=== PATIENT | male | born 1940 | race Caucasian/White ===

== ENCOUNTER 2017-01-22 08:45 | Inpatient (IN) | payer OTHER ==
[~2017-01-22] VITALS: Ht 172.7 cm; Wt 55.5 kg
[2017-01-22] MEDS ORDERED: ONDANSETRON 4 MG INJ IV STA (09:17)
[2017-01-22] MEDS ORDERED: SOD CHLORIDE 0.9% 1,000 ML IV STA ×3 (09:17→13:09)
[2017-01-22] MEDS ORDERED: morphine 4 MG/ML VIAL IV STA (09:17)
[2017-01-22] MEDS ORDERED: KETOROLAC 30 MG INJ IV STA ×2 (09:17→10:32)
--- NOTE | 2017-01-22 10:07 | RADRPT ---
PROCEDURE: CT ABDOMEN AND PELVIS WITHOUT CONTRAST. CLINICAL INDICATION: Lower right flank pain TECHNIQUE: CT scan of the abdomen and pelvis without contrast was performed on a multidetector hig h-resolution CT scanner. The patient was scanned without intravenous contrast. Coronal and sagittal reformatted images were obtained from the axial source images. Images were reviewed on a high-resol [employer] PACS workstation. The total exam CTDI equals 5.2 mGy and the total exam DLP equals 300.8 mGy-c m. One or more of the following dose reduction techniques were used: Automated exposure control. Adjustment of the mA and/or kV according to patient size. Use of iterative reconstruction technique. COMPARISON: None FINDINGS: CT abdomen: The lung bases are clear. The heart size is within limits. There is no significant pericardial effus ion. Hepatic morphology is within normal limits. No gross contour deforming masses. The gallbladder is wi thin normal limits. No evidence of intrahepatic or extrahepatic biliary dilatation. The spleen and pancreas are within normal limits. Both adrenal glands are within normal limits. Both kidneys are and normal anatomic position. The right kidney is enlarged and there is right-sided hydronephrosis, secondary to a 5 mm stone within the right mid ureter. Right perinephric fat strand ing is noted. Several additional nonobstructing stones are noted within the right kidney. Multiple n onobstructing stones are also identified within the left kidney, without evidence of obstruction hyd ronephrosis. The visualized GI tract demonstrates normal caliber loops of small and large bowel. No evidence of b owel obstruction. The appendix is within normal limits. Stool filled loops of large bowel are noted. There is colonic diverticulosis. Atherosclerotic calcification of the aorta is identified. There is aneurysmal dilatation of the infr arenal aorta measuring up to 3.2 cm. No significant retroperitoneal lymphadenopathy. CT pelvis: Bladder is within limits. The prostate gland is enlarged measuring up to 5.17 cm. There is extensive sigmoid diverticulosis. No evidence of free fluid and no evidence of pelvic lymphadenopathy. The visualized osseous structures demonstrate multilevel degenerative disease of the spine. IMPRESSION: 1. ENLARGED RIGHT KIDNEY WITH RIGHT PERINEPHRIC FAT STRANDING AND RIGHT-SIDED HYDRONEPHROSIS SECONDA RY TO A 5 MM STONE WITHIN THE RIGHT MID URETER. 2. Multiple additional nonobstructing stones are identified within both kidneys. No evidence of hydr onephrosis within the left kidney. 3. Colonic diverticulosis. No evidence of bowel obstruction. Stool filled large bowel suggestive of constipation. The appendix is within normal limits. 4. Atherosclerotic disease of the aorta. 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 5. Prostamegaly. RPTAT: AAPP Fransisco Seymour Physician Date Time Electronically viewed and signed by Fransisco Seymour Physician on 01/22/2017 10:07 JL/
[2017-01-22] MEDS ORDERED: ALBU8.5H3 INH (10:47)
[2017-01-22] MEDS ORDERED: CIPROFLOXACIN 400MG/D5W 200 ML IVPB ONE (11:00)
[2017-01-22] MEDS ORDERED: KETOROLAC 15 MG INJ IV SCH (11:00)
[2017-01-22] MEDS ORDERED: TAMSULOSIN (SR) 0.4 MG CAP PO SCH (11:30)
--- NOTE | 2017-01-22 14:10 | ERD ---
ER Documentation Chief Complaint Chief Complaint RT FLANK PAIN RADIATING TO RT LOWER ABDOMEN HPI This is a very pleasant 76-year-old male that presents to the emergency department complaining of a sudden onset of right flank pain that began this morning roughly 3 hours prior to arrival. The pain is persistent, 10 out of 10 in intensity and does radiate to the right lower quadrant and right ring. He denies any frequency urgency or dysuria no gross hematuria. He is felt nauseous but has not experienced any hemoptysis hematemesis or melanotic stools. He has never had any similar symptoms in the past. He has no chest pain or pressure that radiates to the neck arm back or jaw. Patient said he had a tactile fever with shaking and chills yesterday evening but did not take any antipyretics prior to arrival. ROS All systems reviewed and are negative except as per history of present illness. Medications Home Meds Reported Medications Albuterol Sulfate* (Proair HFA*) 8.5 Gm Hfa.aer.ad, 2 PUFF INH Q4H Y for WHEEZING AND SOB, #1 INHALER 01/22/17 Allergies Allergies: Coded Allergies: No Known Allergy (Unverified , 01/22/17) PMhx/Soc History of Surgery: Yes (hernia repair) Anesthesia Reaction: No Hx 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 Disorder: No Hx Respiratory Disorders: Yes (asthma) Hx Cardiac Disorders: No Hx Psychiatric Problems: No Hx Miscellaneous Medical Probl: No Hx Alcohol Use: No Hx Substance Use: No Hx Tobacco Use: Yes Smoking Status: Current every day smoker Physical Exam Vitals Vital Signs Date Time Temp Pulse Resp B/P Pulse Ox O2 Delivery O2 Flow Rate FiO2 01/22/17 11:45 72 18 117/73 98 Room Air 01/22/17 08:48 97.6 73 18 139/66 98 Physical Exam Constitutional:Well-developed. Well-nourished. Appeared to be in a significant amount discomfort secondary to pain HEENT:Normocephalic. Atraumatic.Pupils were equal round reactive to light. Moist mucous membranes.No tonsillar exudates. Neck: No nuchal rigidity. No lymphadenopathy. No posterior cervical spine tenderness or step-offs. Respiratory: Not using accessory muscles of respiration.Lungs were clear to auscultation bilaterally. No rhonchi. No rales. No wheezing. Cardiovascular: Regular rate regular rhythm.No murmurs. No rubs were appreciated.S1, S2 normal. Distal pulses are palpable 2+ bilaterally. GI: Abdomen was soft. Right CVA tenderness. Non Distended. No pulsatile abdominal masses or bruits. No rebound. No guarding. Bowel sounds were present and normal. No tenderness over McBurney's point. Psoas sign negative. Obturator sign negative : Normal lie to both testicles. No tenderness to right testicle. Muscle skeletal: Full range of motion of both the upper and lower extremities bilaterally.Normal muscle tone.No assymetrical calf tenderness or swelling. Skin: No petechia, no purpura. No lesions on the palms or the soles of the feet. No maculopapular rash. NEURO: Patient was alert, awake, orientated x3.No facial droop. Gait observed and normal with no ataxia.Speech had regular rate and rhythm. No focal neurological deficits. Result Diagram: 01/22/1792401/22/1725 Results 24 hrs Laboratory Tests Test 01/22/17 09:25 01/22/17 09:30 01/22/17 13:20 White Blood Count 7.810^3/ul Red Blood Count 4.7410^6/ul Hemoglobin 14.3g/dl Hematocrit 44.2% Mean Corpuscular Volume 93.2fl Mean Corpuscular Hemoglobin 30.2pg Mean Corpuscular Hemoglobin Concent 32.4g/dl Red Cell Distribution Width 12.8% Platelet Count 81776^3/UL Mean Platelet Volume 12.0fl Neutrophils % 76.4% Lymphocytes % 13.3% Monocytes % 8.4% Eosinophils % 1.3% Basophils % 0.1% Nucleated Red Blood Cells % 0.0/100WBC Neutrophils # 6.010^3/ul Lymphocytes # 1.010^3/ul Monocytes # 0.710^3/ul Eosinophils # 0.110^3/ul Basophils # 0.010^3/ul Nucleated Red Blood Cells # 0.010^3/ul Sodium Level 144mmol/L Potassium Level 4.2mmol/L Chloride Level 106mmol/L Carbon Dioxide Level 27mmol/L Anion Gap 15 Blood Urea Nitrogen 12mg/dl Creatinine 0.92mg/dl Glucose Level 108mg/dl Calcium Level 9.4mg/dl Total Bilirubin 0.4mg/dl Direct Bilirubin 0.00mg/dl Indirect Bilirubin 0.4mg/dl Aspartate Amino Transf (AST/SGOT) 16IU/L Alanine Aminotransferase (ALT/SGPT) 19IU/L Alkaline Phosphatase 113IU/L Troponin I < 0.012ng/ml Total Protein 7.3g/dl Albumin 4.4g/dl Globulin 2.90g/dl Albumin/Globulin Ratio 1.51 Prothrombin Time 12.5Sec Prothrombin Time Ratio 1.0 INR International Normalized Ratio 0.93 Activated Partial Thromboplast Time 28.0Sec Urine Color YELLOW Urine Clarity CLEAR Urine pH 6.0 Urine Specific [place] 1.010 Urine Ketones NEGATIVEmg/dL Urine Nitrite NEGATIVEmg/dL Urine Bilirubin NEGATIVEmg/dL Urine Urobilinogen NEGATIVEmg/dL Urine Leukocyte Esterase NEGATIVELeu/ul Urine Microscopic RBC 36/HPF Urine Microscopic WBC 1/HPF Urine Hemoglobin 2+mg/dL Urine Glucose NEGATIVEmg/dL Urine Total Protein NEGATIVEmg/dl Current Medications Medications (Trade) Dose Ordered Sig/[place] PRN Reason Start Time Stop Time Status Last Admin Dose Admin Sodium Chloride (NS) 1,000 ml @ 1,000 mls/hr Q1H STAT IV 01/22/17 09:17 01/22/17 10:16 DC 01/22/17 09:46 Morphine Sulfate (morphine) 4 mg ONCE STAT IV 01/22/17 09:17 01/22/17 09:20 DC 01/22/17 09:46 Ondansetron HCl (Zofran Inj) 4 mg ONCE STAT IV 01/22/17 09:17 01/22/17 09:20 DC 01/22/17 09:46 Ketorolac Tromethamine 30 mg 30 mg ONCE STAT IV 01/22/17 09:17 01/22/17 09:20 DC 01/22/17 09:46 Sodium Chloride (NS) 1,000 ml @ 1,000 mls/hr Q1H STAT IV 01/22/17 10:32 01/22/17 11:31 DC 01/22/17 10:47 Ketorolac Tromethamine 30 mg 30 mg ONCE STAT IV 01/22/17 10:32 01/22/17 10:33 UNV Ciprofloxacin/ Dextrose (Cipro Ivpb) 200 ml @ 200 mls/hr ONCE ONCE IVPB 01/22/17 11:00 01/22/17 11:59 DC 01/22/17 11:01 Tamsulosin HCl (Flomax) 0.4 mg ONCE PO 01/22/17 11:30 01/22/17 13:00 DC 01/22/17 11:01 Ketorolac Tromethamine 15 mg 15 mg ONCE IV 01/22/17 11:00 01/22/17 12:00 DC Sodium Chloride (NS) 1,000 ml @ 1,000 mls/hr Q1H STAT IV 01/22/17 13:09 01/22/17 14:08 DC Procedures/MDM This patient presented to the emergency department with abdominal pain and was seen and evaluated by myself. My differential diagnosis included but was not limited to abdominal aortic aneurysm, appendicitis, pancreatitis, perforated peptic ulcer, perforated viscus, Boerhaaves syndrome or visceral pain such as diverticulitis, DKA, esophagitis, hepatitis or bowel obstruction. The patient was placed on a process development associate, continuous pulse oximetry, and IV access was established by nursing staff. Patient was given intravenous morphine Zofran Toradol and Flomax as a CT scan and physical exam findings did confirm right-sided nephrolithiasis. CT scan read by the radiologist and reviewed by myself indicated the followin. ENLARGED RIGHT KIDNEY WITH RIGHT PERINEPHRIC FAT STRANDING AND RIGHT-SIDED HYDRONEPHROSIS SECONDARY TO A 5 MM STONE WITHIN THE RIGHT MID URETER. 2. Multiple additional nonobstructing stones are identified within both kidneys. No evidence of hydronephrosis within the left kidney. 3. Colonic diverticulosis. No evidence of bowel obstruction. Stool filled large bowel suggestive of constipation. The appendix is within normal limits. 4. Atherosclerotic disease of the aorta. 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 5. Prostamegaly. 12 Lead EKG tracing ordered and reviewed by myself showed: Sinus bradycardia 58 bpm and no arrhythmia. [place] interval normal. QRS duration normal. No ST segment elevation No ST segment depression. No changes consistent with acute ischemia. Observation Note: Time: 4 hours Family Hx: No Hypertension Evaluation: Multiple exams showed no improvement of symptoms that he was in severe pain. Therefore did feel the patient required admission for IV analgesic medication and fluids. He will be seen by the urologist Dr. Salazar and there is no signs of renal failure or obstructive uropathy at this time as the patient was able to urinate without any difficulty and no evidence of an infectious process however given the severity of his symptoms he was given a dose of IV ciprofloxacin to prevent secondary bacterial infection. Will be admitted to Dr. Quintanilla in serious condition Departure Diagnosis: Primary Impression: Hydronephrosis Hydronephrosis type: with renal calculous obstruction Qualified Code: N13.2 - Hydronephrosis with urinary obstruction due to renal calculus Additional Impression: Kidney stone on right side Condition: Serious NIKKO LINCOLN Jan 22, 2017 14:10
[2017-01-22] MEDS ORDERED: HYDROCODONE/APAP (5/325) TAB PO PRN ×2 (15:00)
[2017-01-22] MEDS ORDERED: morphine 2 MG INJ IV PRN (15:00)
[2017-01-22] MEDS ORDERED: ACETAMINOPHEN 325 MG TAB PO PRN (15:00)
[2017-01-22] MEDS ORDERED: ALBUTEROL HFA 8 GM INHALER INH PRN (15:00)
[2017-01-22] MEDS ORDERED: DOCUSATE SODIUM 100 MG CAP PO PRN (15:00)
[2017-01-22] MEDS ORDERED: NACL 0.9% 3 ML SYG IV SCH (15:00)
[2017-01-22] MEDS ORDERED: ONDANSETRON 4 MG INJ IV PRN (15:00)
[2017-01-22] MEDS ORDERED: BISACODYL 10 MG SUPP PR PRN (15:00)
[2017-01-22] MEDS: SOD CHLORIDE 0.9% 1,000 ML IV SCH (15:13)
--- NOTE | 2017-01-22 15:24 | HP ---
Date/Time of Note Date/Time of Note DATE: 01/22/17 TIME: 15:14 Assessment/Plan VTE Prophylaxis VTE Prophylaxis Intervention: SCD's Lines/Catheters IV Catheter Type (from [facility]): Peripheral IV Urinary Cath still in place: No Assessment/Plan Assessment/Plan 76-year-old male with: 1. Right flank pain with nephrolithiasis with right hydronephrosis secondary to a 5 mm stone in the mid right ureter. Possible pyelonephritis also, appreciate recommendations from neurology, patient on IV fluids, Flomax, ciprofloxacin. KUB has been ordered, follow-up on results. Strain urine. Dr. Salazar following 2. Asthma/COPD. Continue nebulizer treatments scheduled every 8 hours and patient also has as needed Ventolin. Prophylaxis: Pepcid for GI prophylaxis, SCDs for DVT prophylaxis and patient also ambulatory Disposition: Admit to medical surgical bed, urology following. HPI/ROS Admit Date/Time Admit Date/Time Hx of Present Illness Chief complaint: Right flank pain History of presenting illness: This is a 76-year-old male with history of asthma /COPD, tobacco user who presented the emergency department with acute onset of right flank pain this morning. Patient's reports that he has no previous history of nephrolithiasis, he had acute onset of right flank pain this morning radiating down his right inguinal area towards his penis, he reports nausea, no vomiting, no fevers, occasional episodes of chills with the pain. In the emergency department he had a CAT scan of the abdomen and pelvis which showed right hydronephrosis secondary to a 5 mm stone within the right mid ureter. Patient has been given Flomax, started on IV fluids. Renal function is within normal, white blood cell count within normal, he did receive a dose of ciprofloxacin IV. No hematuria or dysuria reported. Urology, Dr. Salazar, has been consulted and has seen the patient, his current recommendation is to obtain a KUB, conservative management, IV fluids, Flomax, observe the patient and strain his urine, if he does not pass the stone in the next 48 hours, he may need surgical intervention. Patient denies any hypertension, diabetes mellitus, previous kidney disease, previous coronary artery disease or severe pulmonary disease. He is being admitted to a medical surgical bed, currently his pain is under control. ROS Constitutional: chills ENT: no complaints Respiratory: no complaints Cardiovascular: no complaints Gastrointestinal: no complaints Genitourinary: flank pain (Right) Musculoskeletal: no complaints Skin: no complaints Neurologic: no complaints Endocrine: no complaints Lymphatic: no complaints PMH/Family/Social Past Medical History Asthma/COPD Tobacco user Past Surgical History Past Surgical Hx: no surgical history Family History Significant Family History: no pertinent family hx Social History Alcohol Use: occasionally Smoking Status: Current every day smoker (5 cigarettes a day) Drug Use: none Exam/Review of Systems Vital Signs Vitals Vital Signs Date Time Temp Pulse Resp B/P Pulse Ox O2 Delivery O2 Flow Rate FiO2 01/22/17 14:26 69 17 116/69 98 Room Air 01/22/17 08:48 97.6 Exam Constitutional: alert, oriented, well developed Respiratory: clear to auscultation, normal air movement Cardiovascular: nl pulses, regular rate and rhythm Gastrointestinal: soft, tender (Mild right flank) Genitourinary - Male: CVA tenderness (Right, mild) Musculoskeletal: nl extremities to inspection, nl gait and stance Extremities: normal pulses, other (No edema, clubbing or cyanosis) 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: APPLICATIONS SUPPORT ANALYST II-XII intact, nl mental status, nl speech, nl strength Labs Result Diagram: 01/22/1792401/22/17924 Medications Medications Current Medications Tamsulosin HCl 0.4 mg 0.4 mg DAILY PO ; Start 01/23/17 at 09:00 Ciprofloxacin/ Dextrose 200 ml @ 200 mls/hr Q12 IVPB ; Start 01/22/17 at 21:00 Sodium Chloride (NS) 1,000 ml @ 100 mls/hr Q10H IV Last administered on t 15:13; Admin Dose 100 MLS/HR; Start 01/22/17 at 14:38 Ondansetron HCl (Zofran Inj) 4 mg Q6H PRN IV NAUSEA AND/OR VOMITING; Start 01/22/17 at 15:00 Acetaminophen (Tylenol Tab) 650 mg Q6H PRN PO PAIN LEVEL 1-3 OR FEVER; Start 01/22/17 at 15:00 Acetaminophen/ Hydrocodone Bitart ([place] (5/325)) 1 tab Q6H PRN PO MODERATE PAIN LEVEL 4-6; Start 01/22/17 at 15:00 Acetaminophen/ Hydrocodone Bitart ([place] (5/325)) 2 tab Q6H PRN PO SEVERE PAIN LEVEL 7-10; Start 01/22/17 at 15:00 Morphine Sulfate (morphine) 2 mg Q4H PRN IV SEVERE PAIN LEVEL 7-10; Start 01/22 at 15:00 Docusate Sodium (Colace) 100 mg Q12H PRN PO CONSTIPATION; Start 01/22/17 at 15: 00 Magnesium Hydroxide (Milk Of Mag) 30 ml DAILY PRN PO CONSTIPATION; Start at 15:00 Bisacodyl (Dulcolax Supp) 10 mg DAILY PRN [place] CONSTIPATION; Start 01/22/17 at 15 :00 Famotidine (Pepcid) 20 mg Q12 PO ; Start 01/22/17 at 21:00 Albuterol (Ventolin Hfa) 2 puff Q4H PRN INH WHEEZING AND SOB; Start 01/22/17 at 15:00 Procedures Procedures PROCEDURE: CT ABDOMEN AND PELVIS WITHOUT CONTRAST. CLINICAL INDICATION: Lower right flank pain TECHNIQUE: CT scan of the abdomen and pelvis without contrast was performed on a multidetector high-resolution CT scanner. The patient was scanned without intravenous contrast. Coronal and sagittal reformatted images were obtained from the axial source images. Images were reviewed on a high-resolution PACS workstation. The total exam CTDI equals 5.2 mGy and the total exam DLP equals 300.8 mGy-cm. One or more of the following dose reduction techniques were used: Automated exposure control. Adjustment of the mA and/or kV according to patient size. Use of iterative reconstruction technique. COMPARISON: None FINDINGS: CT abdomen: The lung bases are clear. The heart size is within limits. There is no significant pericardial effusion. Hepatic morphology is within normal limits. No gross contour deforming masses. The gallbladder is within normal limits. No evidence of intrahepatic or extrahepatic biliary dilatation. The spleen and pancreas are within normal limits. Both adrenal glands are within normal limits. Both kidneys are and normal anatomic position. The right kidney is enlarged and there is right-sided hydronephrosis, secondary to a 5 mm stone within the right mid ureter. Right perinephric fat stranding is noted. Several additional nonobstructing stones are noted within the right kidney. Multiple nonobstructing stones are also identified within the left kidney, without evidence of obstruction hydronephrosis. The visualized GI tract demonstrates normal caliber loops of small and large bowel. No evidence of bowel obstruction. The appendix is within normal limits. Stool filled loops of large bowel are noted. There is colonic diverticulosis. Atherosclerotic calcification of the aorta is identified. There is aneurysmal dilatation of the infrarenal aorta measuring up to 3.2 cm. No significant retroperitoneal lymphadenopathy. CT pelvis: Bladder is within limits. The prostate gland is enlarged measuring up to 5.17 cm. There is extensive sigmoid diverticulosis. No evidence of free fluid and no evidence of pelvic lymphadenopathy. The visualized osseous structures demonstrate multilevel degenerative disease of the spine. IMPRESSION: 1. ENLARGED RIGHT KIDNEY WITH RIGHT PERINEPHRIC FAT STRANDING AND RIGHT-SIDED HYDRONEPHROSIS SECONDARY TO A 5 MM STONE WITHIN THE RIGHT MID URETER. 2. Multiple additional nonobstructing stones are identified within both kidneys. No evidence of hydronephrosis within the left kidney. 3. Colonic diverticulosis. No evidence of bowel obstruction. Stool filled large bowel suggestive of constipation. The appendix is within normal limits. 4. Atherosclerotic disease of the aorta. 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 5. Prostamegaly. RPTAT: AAPP Physician Yin Date Time Electronically viewed and signed by Physician Yin on 01/22/2017 10:07 TIARRA/ MANJU ZELAYA Jan 22, 2017 15:24
[2017-01-22 15:26] VITALS: Ht 172.7 cm; Wt 55.5 kg
--- NOTE | 2017-01-22 15:38 | RADRPT ---
PROCEDURE: XR Abdomen 1 View. CLINICAL INDICATION: Abdominal pain. Kidney stone follow-up. TECHNIQUE: AP abdomen x-ray. COMPARISON: CT January 22, 2017 FINDINGS: Air and stool are seen scattered within the colon. Scattered gas is seen within nondilated loops of small bowel. No dilated loops of small bowel are observed. No organomegaly is identified. A subtle 4 mm calcification overlying the right transverse process of L4 may reflect the right ureteral ston e seen on prior CT. A few millimeter calcification is seen over the superior pole of the right kidne y. Degenerative changes are seen in the hips and spine. IMPRESSION: Nonspecific bowel gas pattern. Subtle 4 mm calcification overlying the right transverse process of L4 that may reflect the right ur eteral stone seen on prior CT. Location appears unchanged. 3 mm calcification over the superior pole of the right kidney that may reflect a small right renal s tone. The remaining small renal stones seen on prior CT are not well visualized on the current x-ray. RPTAT: AA .Robin Elmore MD, Date Time Electronically viewed and signed by .Robin Elmore MD, MD on 01/22/2017 15:38 .P/
[2017-01-22] MEDS: ALBUTEROL 0.083% (NEB) 2.5 MG/3 ML AMP HHN SCH ×2 (17:34→23:48)
[2017-01-22 20:32] VITALS: BP 89/50; RESP 20
[2017-01-22] MEDS: FAMOTIDINE 20 MG TAB PO SCH (21:31)
[2017-01-22] MEDS: CIPROFLOXACIN 400MG/D5W 200 ML IVPB SCH (21:31)
[2017-01-23] MEDS: SOD CHLORIDE 0.9% 1,000 ML IV SCH ×4 (00:38→14:28)
--- NOTE | 2017-01-23 01:55 | CONS ---
DATE OF ADMISSION: 01/22/2017 DATE OF CONSULTATION: 01/22/2017 REQUESTING PHYSICIAN: Dr. Quintanilla. Dear Dr. Quintanilla: Thank you for asking me to see this patient in urological consultation. HISTORY OF PRESENT ILLNESS: As you know, he is a 76-year-old male who presented to the emergency ro om with right flank pain associated with nausea and chills, cold sweats, but there was no vomiting. The pain was radiating to the genital area. He underwent a CT scan of the abdomen and pelvis and t hat showed a stone, 5 mm in size at the level of L4-L5 and with right hydronephrosis. Therefore, a urological consultation was requested. The patient denies any prior history of kidney stones and no prior history of urinary difficulty. He states that he does urinate well. His stream is good and he denies any hematuria and no symptoms of constant urge to urinate. PAST MEDICAL HISTORY: Significant for a history of asthma and COPD. He denies any history of hyper tension, diabetes, heart or lung disease except for the asthma. SOCIAL HISTORY: The patient smokes about 4 cigarettes a day and he drinks socially. FAMILY HISTORY: Negative. PAST SURGICAL HISTORY: He did have a left inguinal hernia repair. PHYSICAL EXAMINATION: GENERAL: Reveals an elderly male who at the presence of the exam was comfortable. He received pain medications. VITAL SIGNS: His temperature is 97.6, pulse is 90, respirations 20, blood pressure 116/69. HEAD AND NECK: Unremarkable. There is no cervical adenopathy. ABDOMEN: Tender in the right lower quadrant and right flank area. There is no abdominal mass palpa ble. GENITALIA: External genitalia are normal. EXTREMITIES: Reveal no edema and no varicose vein. LABORATORY DATA: CBC shows a white count of 7.8, hemoglobin 14.3, hematocrit 44.2, platelet count 1 75,000. BUN is 12, creatinine 0.92. Electrolytes are normal. PT is 12.5, INR 0.93. Urinalysis: 2+ occult blood. The CT scan as reported states that there is an enlarged right kidney with right perinephric fat str anding and right-sided hydronephrosis secondary to a 5 mm stone within the right mid ureter. Multip le additional nonobstructing stones are identified within both kidneys. No evidence of hydronephros is in the left kidney. Colonic diverticulosis, no evidence of bowel obstruction, stool filled large bowel suggestive of constipation. The appendix is within normal limits. 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 The patient had a KUB after that and the KUB showed a 4 mm calcification overlying the right reynolds sverse process of L4 that corresponds to the stone seen on the CT scan. Also, there is a 3 mm calci fication over the superior pole of the right kidney, and that may reflect a small right renal stone. IMPRESSION: Right ureteral stone at the level of L4, 5 mm in size, causing obstruction and hydronep hrosis in addition to multiple bilateral kidney stones. The patient at the present is comfortable. PLAN: To admit the patient and to strain his urine for stones. Do a KUB which has been done. [place] r him with antibiotic, put him on Flomax to help relax the ureter and facilitate the passage of the stone. We will repeat the KUB in the morning and if he continues to have pain and he does not pass the stone, then we will do a ureteroscopy and laser lithotripsy and insert a JJ stent. I will follo w his urological problem with you. I do thank you for allowing me to help in his care. Dictated By: ANTONINA MANUEL/KUMAR Conf#: [id number] DID#: [id number]
[2017-01-23 02:48] VITALS: BP 95/52; RESP 18
[2017-01-23] MEDS: ALBUTEROL 0.083% (NEB) 2.5 MG/3 ML AMP HHN SCH ×2 (07:21→15:14)
[2017-01-23] MEDS: FAMOTIDINE 20 MG TAB PO SCH (08:04)
[2017-01-23] MEDS: CIPROFLOXACIN 400MG/D5W 200 ML IVPB SCH (08:04)
[2017-01-23 08:12] VITALS: BP 107/51; RESP 18
[2017-01-23] MEDS: TAMSULOSIN (SR) 0.4 MG CAP PO SCH (08:23)
--- NOTE | 2017-01-23 08:31 | RADRPT ---
PROCEDURE: XR Abdomen. CLINICAL INDICATION: Abdomen pain. History of right ureteral calculus TECHNIQUE: AP supine abdomen x-ray. COMPARISON: Abdomen x-ray dated 01/22/2017. CT scan of the abdomen and pelvis dated 01/22/2017. FINDINGS: The bowel gas pattern is normal. There is no evidence of obstruction. There are calcifications overlying the lower right kidney as seen on prior studies. The small right ureteral calculus is not well seen. The left renal calculi seen on prior CT scan are not visualized on the plain radiograph. There are degenerative changes of the spine. IMPRESSION: 1. Calculi overlying the lower right kidney. 2. The right ureter calculus and left renal calculi are not visualized with plain radiograph. RPTAT: QQ .Freddie Thayer MD, Date Time Electronically viewed and signed by .Freddie Thayer MD, on 01/23/2017 08:31 .R/
--- NOTE | 2017-01-23 08:33 | RADRPT ---
PROCEDURE: XR Chest. CLINICAL INDICATION: Preoperative. Kidney stones. TECHNIQUE: Single frontal view. COMPARISON: None. FINDINGS: The lungs are clear. The heart size is normal. There is no pleural effusion. There is no pneumothorax. IMPRESSION: 1. Normal chest radiograph. RPTAT: QQ .Freddie Thayer MD, Date Time Electronically viewed and signed by .Freddie Thayer MD, on 01/23/2017 08:33 .R/
--- NOTE | 2017-01-23 13:32 | PN ---
Date/Time of Note Date/Time of Note DATE: 01/23/17 TIME: 13:20 Assessment/Plan VTE Prophylaxis VTE Prophylaxis Intervention: SCD's Lines/Catheters [facility] Peripheral IV Urinary Cath still in place: No Assessment/Plan Assessment/Plan 76-year-old male with: 1. Right flank pain with nephrolithiasis with right hydronephrosis secondary to a 5 mm stone in the mid right ureter. Patient with episodes of severe flank pain today, renal function has declined creatinine up to 1.56. KUB not showing previous stone, renal ultrasound ordered by Dr. Salazar and pending. Further instructions per Dr. Salazar. Continue IV fluids, Flomax, ciprofloxacin. Strain urine. 2. Asthma/COPD. Continue nebulizer treatments scheduled every 8 hours and patient also has as needed Ventolin. Chest x-ray already done this morning as preop in case, it is within normal. Prophylaxis: Pepcid for GI prophylaxis, SCDs for DVT prophylaxis and patient also ambulatory Disposition: Follow-up further urology recommendations today post renal ultrasound. Subjective 24 Hr Interval Summary Free Text/Dictation Patient currently more comfortable, he did have an episode of severe pain up to 5/10 this morning, KUB not showing the stone however ultrasound is pending. Dr. Salazar following. He remains afebrile but his kidney function did drop. Exam/Review of Systems Vital Signs Vitals Vital Signs Date Time Temp Pulse Resp B/P Pulse Ox O2 Delivery O2 Flow Rate FiO2 01/23/17 08:12 98.0 84 18 107/51 99 01/23/17 07:23 21 01/22/17 14:26 Room Air Intake and Output 01/22/17 01/22/17 01/23/17 15:00 23:00 07:00 Intake Total 840 ml 1420 ml Output Total 150 ml 420 ml Balance 690 ml 1000 ml Exam Constitutional: alert, oriented, well developed Respiratory: clear to auscultation, normal air movement Cardiovascular: regular rate and rhythm Gastrointestinal: non-tender, soft Genitourinary - Male: CVA tenderness (Right flank pain, episodic.) Musculoskeletal: nl extremities to inspection, nl gait and stance Extremities: normal pulses, other (No edema, clubbing or cyanosis) 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: PHLEBOTOMY PROGRAM COORDINATOR II-XII intact, nl mental status, nl speech, nl strength Results Result Diagram: 01/23/1752001/23/17 0521 Results 24 hrs Laboratory Tests Test 01/23/17 05:21 White Blood Count 5.6 # Red Blood Count 3.53 #L Hemoglobin 10.9 #L Hematocrit 33.6 #L Mean Corpuscular Volume 95.2 Mean Corpuscular Hemoglobin 30.9 Mean Corpuscular Hemoglobin Concent 32.4 Red Cell Distribution Width 13.1 Platelet Count 114 #L Mean Platelet Volume 12.0 H Neutrophils % 65.3 Lymphocytes % 21.8 Monocytes % 10.4 Eosinophils % 2.0 Basophils % 0.0 Nucleated Red Blood Cells % 0.0 Neutrophils # 3.6 Lymphocytes # 1.2 Monocytes # 0.6 Eosinophils # 0.1 Basophils # 0.0 Nucleated Red Blood Cells # 0.0 Sodium Level 139 Potassium Level 4.3 Chloride Level 111 H Carbon Dioxide Level 21 Anion Gap 11 Blood Urea Nitrogen 14 Creatinine 1.56 H Glucose Level 121 Calcium Level 7.6 L Phosphorus Level 3.2 Magnesium Level 1.7 Imaging Free Text/Dictation PROCEDURE: XR Abdomen. CLINICAL INDICATION: Abdomen pain. History of right ureteral calculus TECHNIQUE: AP supine abdomen x-ray. COMPARISON: Abdomen x-ray dated 01/22/2017. CT scan of the abdomen and pelvis dated 01/22/2017. FINDINGS: The bowel gas pattern is normal. There is no evidence of obstruction. There are calcifications overlying the lower right kidney as seen on prior studies. The small right ureteral calculus is not well seen. The left renal calculi seen on prior CT scan are not visualized on the plain radiograph. There are degenerative changes of the spine. IMPRESSION: 1. Calculi overlying the lower right kidney. 2. The right ureter calculus and left renal calculi are not visualized with plain radiograph. RPTAT: QQ .Freddie Thayer MD, MD Date Time Electronically viewed and signed by .Freddie Thayer MD, on 01/23/2017 08:31 Medications Medications Current Medications Tamsulosin HCl 0.4 mg 0.4 mg DAILY PO Last administered on 01/23/17 08:23; Admin Dose 0.4 MG; Start 01/23/17 at 09:00 Sodium Chloride (NS) 1,000 ml @ 100 mls/hr Q10H IV Last administered on 02:36; Admin Dose 100 MLS/HR; Start 01/22/17 at 14:38 Ondansetron HCl (Zofran Inj) 4 mg Q6H PRN IV NAUSEA AND/OR VOMITING; Start 01/22/17 at 15:00 Acetaminophen (Tylenol Tab) 650 mg Q6H PRN PO PAIN LEVEL 1-3 OR FEVER; Start 01/22/17 at 15:00 Acetaminophen/ Hydrocodone Bitart ([place] (5/325)) 1 tab Q6H PRN PO MODERATE PAIN LEVEL 4-6; Start 01/22/17 at 15:00 Acetaminophen/ Hydrocodone Bitart ([place] (5/325)) 2 tab Q6H PRN PO SEVERE PAIN LEVEL 7-10; Start 01/22/17 at 15:00 Morphine Sulfate (morphine) 2 mg Q4H PRN IV SEVERE PAIN LEVEL 7-10 Last administered on 01/23/17 08:04; Admin Dose 2 MG; Start 01/22/17 at 15:00 Docusate Sodium (Colace) 100 mg Q12H PRN PO CONSTIPATION; Start 01/22/17 at 15: 00 Magnesium Hydroxide (Milk Of Mag) 30 ml DAILY PRN PO CONSTIPATION; Start at 15:00 Bisacodyl (Dulcolax Supp) 10 mg DAILY PRN [place] CONSTIPATION; Start 01/22/17 at 15 :00 Albuterol (Ventolin Hfa) 2 puff Q4H PRN INH WHEEZING AND SOB; Start 01/22/17 at 15:00 Famotidine 20 mg 20 mg DAILY PO ; Start 01/24/17 at 09:00 Ciprofloxacin/ Dextrose (Cipro Ivpb) 100 ml @ 100 mls/hr Q12 IV* ; Start at 21:00 MANJU ZELAYA Jan 23, 2017 13:31
--- NOTE | 2017-01-23 14:11 | RADRPT ---
PROCEDURE: US Renal CLINICAL INDICATION: Follow-up right ureteral stone. TECHNIQUE: Multiple sonographic images of the kidneys and bladder were obtained. Evaluation of th e kidneys and bladder was performed as well with de leon scale and color and Doppler evaluation using a curved array transducer. The images were reviewed on a high-resolution PACS workstation. COMPARISON: CT abdomen pelvis from 01/22/2017. FINDINGS: The right kidney measures 10.3 cm. The left kidney measures 9.9 cm. There is normal echogenicity within the parenchyma of the kidneys bilaterally. There is mild right-sided hydronephrosis present. There is no significant change in the bilateral re nal calculi. No perinephric fluid collection is seen. Evaluation of the urinary bladder is unremarkable. IMPRESSION: 1. Mild right hydronephrosis which appears to be slightly less prominent than the CT from 7. 2. No significant change in bilateral renal calculi. RPTAT: [facility] Physician Vera Date Time Electronically viewed and signed by Physician Vera on 01/23/2017 14:11 /
[2017-01-23 14:28] VITALS: BP 101/57; RESP 18
--- NOTE | 2017-01-23 15:33 | CONS ---
Date/Time of Note Date/Time of Note DATE: 01/23/17 TIME: 15:24 Consult Date/Type/Reason Admit Date/Time Jan 22, 2017 at 14:03 Initial Consult Date 01/22/2017 Reason for Consultation right ureteral stone Ordering Provider: MANJU ZELAYA Subjective right flank pain,last time at 11am Objective Vital Signs Date Time Temp Pulse Resp B/P Pulse Ox O2 Delivery O2 Flow Rate FiO2 01/23/17 15:15 75 20 98 21 01/23/17 14:28 98.0 101/57 01/22/17 14:26 Room Air Intake and Output 01/22/17 01/22/17 01/23/17 15:00 23:00 07:00 Intake Total 840 ml 1420 ml Output Total 150 ml 420 ml Balance 690 ml 1000 ml Exam rt flank tenderness and RLQ tenderness Results/Medications Result Diagram: 01/23/1752001/23/1721 Results 24 hrs Laboratory Tests Test 01/23/17 05:21 White Blood Count 5.6 # Red Blood Count 3.53 #L Hemoglobin 10.9 #L Hematocrit 33.6 #L Mean Corpuscular Volume 95.2 Mean Corpuscular Hemoglobin 30.9 Mean Corpuscular Hemoglobin Concent 32.4 Red Cell Distribution Width 13.1 Platelet Count 114 #L Mean Platelet Volume 12.0 H Neutrophils % 65.3 Lymphocytes % 21.8 Monocytes % 10.4 Eosinophils % 2.0 Basophils % 0.0 Nucleated Red Blood Cells % 0.0 Neutrophils # 3.6 Lymphocytes # 1.2 Monocytes # 0.6 Eosinophils # 0.1 Basophils # 0.0 Nucleated Red Blood Cells # 0.0 Sodium Level 139 Potassium Level 4.3 Chloride Level 111 H Carbon Dioxide Level 21 Anion Gap 11 Blood Urea Nitrogen 14 Creatinine 1.56 H Glucose Level 121 Calcium Level 7.6 L Phosphorus Level 3.2 Magnesium Level 1.7 Medications Current Medications Tamsulosin HCl 0.4 mg 0.4 mg DAILY PO Last administered on 01/23/17 08:23; Admin Dose 0.4 MG; Start 01/23/17 at 09:00 Sodium Chloride (NS) 1,000 ml @ 100 mls/hr Q10H IV Last administered on 14:28; Admin Dose 100 MLS/HR; Start 01/22/17 at 14:38 Ondansetron HCl (Zofran Inj) 4 mg Q6H PRN IV NAUSEA AND/OR VOMITING; Start 01/22/17 at 15:00 Acetaminophen (Tylenol Tab) 650 mg Q6H PRN PO PAIN LEVEL 1-3 OR FEVER; Start 01/22/17 at 15:00 Acetaminophen/ Hydrocodone Bitart ([place] (5/325)) 1 tab Q6H PRN PO MODERATE PAIN LEVEL 4-6; Start 01/22/17 at 15:00 Acetaminophen/ Hydrocodone Bitart ([place] (5/325)) 2 tab Q6H PRN PO SEVERE PAIN LEVEL 7-10; Start 01/22/17 at 15:00 Morphine Sulfate (morphine) 2 mg Q4H PRN IV SEVERE PAIN LEVEL 7-10 Last administered on 01/23/17t 08:04; Admin Dose 2 MG; Start 01/22/17 at 15:00 Docusate Sodium (Colace) 100 mg Q12H PRN PO CONSTIPATION; Start 01/22/17 at 15: 00 Magnesium Hydroxide (Milk Of Mag) 30 ml DAILY PRN PO CONSTIPATION; Start at 15:00 Bisacodyl (Dulcolax Supp) 10 mg DAILY PRN [place] CONSTIPATION; Start 01/22/17 at 15 :00 Albuterol (Ventolin Hfa) 2 puff Q4H PRN INH WHEEZING AND SOB; Start 01/22/17 at 15:00 Famotidine 20 mg 20 mg DAILY PO ; Start 01/24/17 at 09:00 Ciprofloxacin/ Dextrose (Cipro Ivpb) 100 ml @ 100 mls/hr Q12 IV* ; Start at 21:00 Assessment/Plan Chief Complaint/Hosp Course right ureteral stone ,KUB today did not show the stone as it may be over the sacroiliac area.His creatinine did go up from 0.92 to 1.56, therefore I ordered a renal ultrasound to evaluate the hydronephrosis. He still has hydronephrosis and it is a little less than seen on the CT scan. Problems: Additional Assessment/Plan Continue to strain the urine,pain meds,tamsulosin and antibiotic,repeat the KUB in am. recheck his BMP and if he does not pass the stone ,I'll do cystoscopy , right ureteroscopy and laser lithotripsy and insert a right ureteral JJ stent on Thursday 5:30pm ANTONINA PARK MD Jan 23, 2017 15:33
[2017-01-23 20:02] VITALS: BP 103/57; RESP 18
[2017-01-23] MEDS: D5W IV* SCH (20:28)
[2017-01-23] MEDS: CIPROFLOXACIN IV* SCH (20:28)
[2017-01-24] MEDS: ALBUTEROL 0.083% (NEB) 2.5 MG/3 ML AMP HHN SCH ×4 (00:17→21:18)
[2017-01-24] MEDS: SOD CHLORIDE 0.9% 1,000 ML IV SCH ×5 (00:39→23:40)
[2017-01-24 02:40] VITALS: BP 119/59; RESP 18
[2017-01-24] MEDS: MAGNESIUM HYDROXIDE 30ML CUP PO PRN (05:43)
[2017-01-24 07:27] VITALS: BP 131/61; RESP 18
[2017-01-24] MEDS: CIPROFLOXACIN IV* SCH ×2 (08:46→20:53)
[2017-01-24] MEDS: FAMOTIDINE 20 MG TAB PO SCH (08:46)
[2017-01-24] MEDS: D5W IV* SCH ×2 (08:46→20:53)
[2017-01-24] MEDS: TAMSULOSIN (SR) 0.4 MG CAP PO SCH (08:46)
--- NOTE | 2017-01-24 13:54 | PN ---
Date/Time of Note Date/Time of Note DATE: 01/24/17 TIME: 13:38 Assessment/Plan VTE Prophylaxis VTE Prophylaxis Intervention: SCD's Lines/Catheters IV [facility]ter Type (from [facility]): Peripheral IV Urinary Cath still in place: No Assessment/Plan Assessment/Plan 76-year-old male with: 1. Right flank pain with nephrolithiasis with right hydronephrosis secondary to a 5 mm stone in the mid right ureter. Patient with one episode of mild pain, he is reporting flank pain however. No function back to normal CBC within normal Continue IV fluids, Flomax, ciprofloxacin. Straining urine. 2. Asthma/COPD. Continue nebulizer treatments scheduled every 8 hours and patient also has as needed Ventolin. Chest x-ray already done this morning as preop in case, it is within normal. Prophylaxis: Pepcid for GI prophylaxis, SCDs for DVT prophylaxis and patient also ambulatory Disposition: Follow-up further urology recommendations today, renal ultrasound yesterday showing improved hydronephrosis. Subjective 24 Hr Interval Summary Free Text/Dictation Patient apparently has not asked for any pain medication over the past 24 hours , he did ask for constipation, and that he is reporting a mild pain 3 out of 10 that may be from laxatives. Urine has been strained since admission, still no stones seen yet. WBC has normalized. Renal function back to normal Exam/Review of Systems Vital Signs Vitals Vital Signs Date Time Temp Pulse Resp B/P Pulse Ox O2 Delivery O2 Flow Rate FiO2 01/24/17 08:22 72 18 21 01/24/17 07:27 97.8 131/61 98 01/22/17 14:26 Room Air Intake and Output 01/23/17 01/23/17 01/24/17 15:00 23:00 07:00 Intake Total 900 ml 1250 ml 1750 ml Output Total 1050 ml 2500 ml Balance 900 ml 200 ml -750 ml Exam Constitutional: alert, oriented, well developed Respiratory: clear to auscultation, normal air movement Cardiovascular: nl pulses, regular rate and rhythm Gastrointestinal: non-tender, soft Musculoskeletal: nl extremities to inspection, nl gait and stance Extremities: normal pulses 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: BARREL HEADER II-XII intact, nl mental status, nl speech, nl strength Results Result Diagram: 01/24/17 0612 01/24/17 0613 Results 24 hrs Laboratory Tests Test 01/24/17 06:12 01/24/17 06:13 White Blood Count 9.1 # Red Blood Count 3.82 L Hemoglobin 11.7 L Hematocrit 35.5 L Mean Corpuscular Volume 92.9 Mean Corpuscular Hemoglobin 30.6 Mean Corpuscular Hemoglobin Concent 33.0 Red Cell Distribution Width 12.9 Platelet Count 123 L Mean Platelet Volume 11.8 H Neutrophils % 76.7 Lymphocytes % 12.0 L Monocytes % 9.4 Eosinophils % 1.4 Basophils % 0.1 Nucleated Red Blood Cells % 0.0 Neutrophils # 6.9 Lymphocytes # 1.1 Monocytes # 0.9 Eosinophils # 0.1 Basophils # 0.0 Nucleated Red Blood Cells # 0.0 Phosphorus Level 2.8 Magnesium Level 1.9 Sodium Level 143 Potassium Level 4.1 Chloride Level 114 H Carbon Dioxide Level 25 Anion Gap 8 Blood Urea Nitrogen 9 Creatinine 0.87 Glucose Level 97 Calcium Level 8.7 Medications Medications Current Medications Tamsulosin HCl 0.4 mg 0.4 mg DAILY PO Last administered on 01/24/17 08:46; Admin Dose 0.4 MG; Start 01/23/17 at 09:00 Sodium Chloride (NS) 1,000 ml @ 100 mls/hr Q10H IV Last administered on 12:10; Admin Dose 100 MLS/HR; Start 01/22/17 at 14:38 Ondansetron HCl (Zofran Inj) 4 mg Q6H PRN IV NAUSEA AND/OR VOMITING; Start 01/22/17 at 15:00 Acetaminophen (Tylenol Tab) 650 mg Q6H PRN PO PAIN LEVEL 1-3 OR FEVER; Start 01/22/17 at 15:00 Acetaminophen/ Hydrocodone Bitart ([place] (5/325)) 1 tab Q6H PRN PO MODERATE PAIN LEVEL 4-6; Start 01/22/17 at 15:00 Acetaminophen/ Hydrocodone Bitart ([place] (5/325)) 2 tab Q6H PRN PO SEVERE PAIN LEVEL 7-10; Start 01/22/17 at 15:00 Morphine Sulfate (morphine) 2 mg Q4H PRN IV SEVERE PAIN LEVEL 7-10 Last administered on 01/23/17 08:04; Admin Dose 2 MG; Start 01/22/17 at 15:00 Docusate Sodium (Colace) 100 mg Q12H PRN PO CONSTIPATION; Start 01/22/17 at 15: 00 Magnesium Hydroxide (Milk Of Mag) 30 ml DAILY PRN PO CONSTIPATION Last administered on 01/24/17 05:43; Admin Dose 30 ML; Start 01/22/17 at 15:00 Bisacodyl (Dulcolax Supp) 10 mg DAILY PRN [place] CONSTIPATION; Start 01/22/17 at 15 :00 Albuterol (Ventolin Hfa) 2 puff Q4H PRN INH WHEEZING AND SOB; Start 01/22/17 at 15:00 Famotidine 20 mg 20 mg DAILY PO Last administered on 01/24/17 08:46; Admin Dose 20 MG; Start 01/24/17 at 09:00 Ciprofloxacin/ Dextrose (Cipro Ivpb) 100 ml @ 100 mls/hr Q12 IV* Last administered on 01/24/17 08:46; Admin Dose 100 MLS/HR; Start 01/23/17 at 21:00 MANJU ZELAYA Jan 24, 2017 13:48
--- NOTE | 2017-01-24 13:54 | PN ---
Date/Time of Note Date/Time of Note DATE: 01/24/17 TIME: 13:38 Assessment/Plan VTE Prophylaxis VTE Prophylaxis Intervention: SCD's Lines/Catheters [facility] Peripheral IV Urinary Cath still in place: No Assessment/Plan Assessment/Plan 76-year-old male with: 1. Right flank pain with nephrolithiasis with right hydronephrosis secondary to a 5 mm stone in the mid right ureter. Patient with one episode of mild pain, he is reporting flank pain however. No function back to normal CBC within normal Continue IV fluids, Flomax, ciprofloxacin. Straining urine. 2. Asthma/COPD. Continue nebulizer treatments scheduled every 8 hours and patient also has as needed Ventolin. Chest x-ray already done this morning as preop in case, it is within normal. Prophylaxis: Pepcid for GI prophylaxis, SCDs for DVT prophylaxis and patient also ambulatory Disposition: Follow-up further urology recommendations today, renal ultrasound yesterday showing improved hydronephrosis. Subjective 24 Hr Interval Summary Free Text/Dictation Patient apparently has not asked for any pain medication over the past 24 hours , he did ask for constipation, and that he is reporting a mild pain 3 out of 10 that may be from laxatives. Urine has been strained since admission, still no stones seen yet. WBC has normalized. Renal function back to normal Exam/Review of Systems Vital Signs Vitals Vital Signs Date Time Temp Pulse Resp B/P Pulse Ox O2 Delivery O2 Flow Rate FiO2 01/24/17 08:22 72 18 21 01/24/17 07:27 97.8 131/61 98 01/22/17 14:26 Room Air Intake and Output 01/23/17 01/23/17 01/24/17 15:00 23:00 07:00 Intake Total 900 ml 1250 ml 1750 ml Output Total 1050 ml 2500 ml Balance 900 ml 200 ml -750 ml Exam Constitutional: alert, oriented, well developed Respiratory: clear to auscultation, normal air movement Cardiovascular: nl pulses, regular rate and rhythm Gastrointestinal: non-tender, soft Musculoskeletal: nl extremities to inspection, nl gait and stance Extremities: normal pulses 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: NEWSPAPER DELIVERY COUNSELOR II-XII intact, nl mental status, nl speech, nl strength Results Result Diagram: 01/24/17 0612 01/24/17 0613 Results 24 hrs Laboratory Tests Test 01/24/17 06:12 01/24/17 06:13 White Blood Count 9.1 # Red Blood Count 3.82 L Hemoglobin 11.7 L Hematocrit 35.5 L Mean Corpuscular Volume 92.9 Mean Corpuscular Hemoglobin 30.6 Mean Corpuscular Hemoglobin Concent 33.0 Red Cell Distribution Width 12.9 Platelet Count 123 L Mean Platelet Volume 11.8 H Neutrophils % 76.7 Lymphocytes % 12.0 L Monocytes % 9.4 Eosinophils % 1.4 Basophils % 0.1 Nucleated Red Blood Cells % 0.0 Neutrophils # 6.9 Lymphocytes # 1.1 Monocytes # 0.9 Eosinophils # 0.1 Basophils # 0.0 Nucleated Red Blood Cells # 0.0 Phosphorus Level 2.8 Magnesium Level 1.9 Sodium Level 143 Potassium Level 4.1 Chloride Level 114 H Carbon Dioxide Level 25 Anion Gap 8 Blood Urea Nitrogen 9 Creatinine 0.87 Glucose Level 97 Calcium Level 8.7 Medications Medications Current Medications Tamsulosin HCl 0.4 mg 0.4 mg DAILY PO Last administered on 01/24/17 08:46; Admin Dose 0.4 MG; Start 01/23/17 at 09:00 Sodium Chloride (NS) 1,000 ml @ 100 mls/hr Q10H IV Last administered on 12:10; Admin Dose 100 MLS/HR; Start 01/22/17 at 14:38 Ondansetron HCl (Zofran Inj) 4 mg Q6H PRN IV NAUSEA AND/OR VOMITING; Start 01/22/17 at 15:00 Acetaminophen (Tylenol Tab) 650 mg Q6H PRN PO PAIN LEVEL 1-3 OR FEVER; Start 01/22/17 at 15:00 Acetaminophen/ Hydrocodone Bitart ([place] (5/325)) 1 tab Q6H PRN PO MODERATE PAIN LEVEL 4-6; Start 01/22/17 at 15:00 Acetaminophen/ Hydrocodone Bitart ([place] (5/325)) 2 tab Q6H PRN PO SEVERE PAIN LEVEL 7-10; Start 01/22/17 at 15:00 Morphine Sulfate (morphine) 2 mg Q4H PRN IV SEVERE PAIN LEVEL 7-10 Last administered on 01/23/17 08:04; Admin Dose 2 MG; Start 01/22/17 at 15:00 Docusate Sodium (Colace) 100 mg Q12H PRN PO CONSTIPATION; Start 01/22/17 at 15: 00 Magnesium Hydroxide (Milk Of Mag) 30 ml DAILY PRN PO CONSTIPATION Last administered on 01/24/17 05:43; Admin Dose 30 ML; Start 01/22/17 at 15:00 Bisacodyl (Dulcolax Supp) 10 mg DAILY PRN [place] CONSTIPATION; Start 01/22/17 at 15 :00 Albuterol (Ventolin Hfa) 2 puff Q4H PRN INH WHEEZING AND SOB; Start 01/22/17 at 15:00 Famotidine 20 mg 20 mg DAILY PO Last administered on 01/24/17 08:46; Admin Dose 20 MG; Start 01/24/17 at 09:00 Ciprofloxacin/ Dextrose (Cipro Ivpb) 100 ml @ 100 mls/hr Q12 IV* Last administered on 01/24/17 08:46; Admin Dose 100 MLS/HR; Start 01/23/17 at 21:00 MANJU ZELAYA Jan 24, 2017 13:48
--- NOTE | 2017-01-24 13:54 | PN ---
Date/Time of Note Date/Time of Note DATE: 01/24/17 TIME: 13:38 Assessment/Plan VTE Prophylaxis VTE Prophylaxis Intervention: SCD's Lines/Catheters [facility] Per[facility] IV Urinary Cath still in place: No Assessment/Plan Assessment/Plan 76-year-old male with: 1. Right flank pain with nephrolithiasis with right hydronephrosis secondary to a 5 mm stone in the mid right ureter. Patient with one episode of mild pain, he is reporting flank pain however. No function back to normal CBC within normal Continue IV fluids, Flomax, ciprofloxacin. Straining urine. 2. Asthma/COPD. Continue nebulizer treatments scheduled every 8 hours and patient also has as needed Ventolin. Chest x-ray already done this morning as preop in case, it is within normal. Prophylaxis: Pepcid for GI prophylaxis, SCDs for DVT prophylaxis and patient also ambulatory Disposition: Follow-up further urology recommendations today, renal ultrasound yesterday showing improved hydronephrosis. Subjective 24 Hr Interval Summary Free Text/Dictation Patient apparently has not asked for any pain medication over the past 24 hours , he did ask for constipation, and that he is reporting a mild pain 3 out of 10 that may be from laxatives. Urine has been strained since admission, still no stones seen yet. WBC has normalized. Renal function back to normal Exam/Review of Systems Vital Signs Vitals Vital Signs Date Time Temp Pulse Resp B/P Pulse Ox O2 Delivery O2 Flow Rate FiO2 01/24/17 08:22 72 18 21 01/24/17 07:27 97.8 131/61 98 01/22/17 14:26 Room Air Intake and Output 01/23/17 01/23/17 01/24/17 15:00 23:00 07:00 Intake Total 900 ml 1250 ml 1750 ml Output Total 1050 ml 2500 ml Balance 900 ml 200 ml -750 ml Exam Constitutional: alert, oriented, well developed Respiratory: clear to auscultation, normal air movement Cardiovascular: nl pulses, regular rate and rhythm Gastrointestinal: non-tender, soft Musculoskeletal: nl extremities to inspection, nl gait and stance Extremities: normal pulses 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, nl mental status, nl speech, nl strength Results Result Diagram: 01/24/17 0612 01/24/17 0613 Results 24 hrs Laboratory Tests Test 01/24/17 06:12 01/24/17 06:13 White Blood Count 9.1 # Red Blood Count 3.82 L Hemoglobin 11.7 L Hematocrit 35.5 L Mean Corpuscular Volume 92.9 Mean Corpuscular Hemoglobin 30.6 Mean Corpuscular Hemoglobin Concent 33.0 Red Cell Distribution Width 12.9 Platelet Count 123 L Mean Platelet Volume 11.8 H Neutrophils % 76.7 Lymphocytes % 12.0 L Monocytes % 9.4 Eosinophils % 1.4 Basophils % 0.1 Nucleated Red Blood Cells % 0.0 Neutrophils # 6.9 Lymphocytes # 1.1 Monocytes # 0.9 Eosinophils # 0.1 Basophils # 0.0 Nucleated Red Blood Cells # 0.0 Phosphorus Level 2.8 Magnesium Level 1.9 Sodium Level 143 Potassium Level 4.1 Chloride Level 114 H Carbon Dioxide Level 25 Anion Gap 8 Blood Urea Nitrogen 9 Creatinine 0.87 Glucose Level 97 Calcium Level 8.7 Medications Medications Current Medications Tamsulosin HCl 0.4 mg 0.4 mg DAILY PO Last administered on 01/24/17 08:46; Admin Dose 0.4 MG; Start 01/23/17 at 09:00 Sodium Chloride (NS) 1,000 ml @ 100 mls/hr Q10H IV Last administered on 12:10; Admin Dose 100 MLS/HR; Start 01/22/17 at 14:38 Ondansetron HCl (Zofran Inj) 4 mg Q6H PRN IV NAUSEA AND/OR VOMITING; Start 01/22/17 at 15:00 Acetaminophen (Tylenol Tab) 650 mg Q6H PRN PO PAIN LEVEL 1-3 OR FEVER; Start 01/22/17 at 15:00 Acetaminophen/ Hydrocodone Bitart ([place] (5/325)) 1 tab Q6H PRN PO MODERATE PAIN LEVEL 4-6; Start 01/22/17 at 15:00 Acetaminophen/ Hydrocodone Bitart ([place] (5/325)) 2 tab Q6H PRN PO SEVERE PAIN LEVEL 7-10; Start 01/22/17 at 15:00 Morphine Sulfate (morphine) 2 mg Q4H PRN IV SEVERE PAIN LEVEL 7-10 Last administered on 01/23/17 08:04; Admin Dose 2 MG; Start 01/22/17 at 15:00 Docusate Sodium (Colace) 100 mg Q12H PRN PO CONSTIPATION; Start 01/22/17 at 15: 00 Magnesium Hydroxide (Milk Of Mag) 30 ml DAILY PRN PO CONSTIPATION Last administered on 01/24/17 05:43; Admin Dose 30 ML; Start 01/22/17 at 15:00 Bisacodyl (Dulcolax Supp) 10 mg DAILY PRN [place] CONSTIPATION; Start 01/22/17 at 15 :00 Albuterol (Ventolin Hfa) 2 puff Q4H PRN INH WHEEZING AND SOB; Start 01/22/17 at 15:00 Famotidine 20 mg 20 mg DAILY PO Last administered on 01/24/17 08:46; Admin Dose 20 MG; Start 01/24/17 at 09:00 Ciprofloxacin/ Dextrose (Cipro Ivpb) 100 ml @ 100 mls/hr Q12 IV* Last administered on 01/24/17 08:46; Admin Dose 100 MLS/HR; Start 01/23/17 at 21:00 MANJU ZELAYA Jan 24, 2017 13:48
[2017-01-24 14:12] VITALS: BP 117/61; RESP 18
--- NOTE | 2017-01-24 16:15 | RADRPT ---
PROCEDURE: XR Abdomen 1 View. CLINICAL INDICATION: Flank pain, right ureteral stone. TECHNIQUE: AP abdomen x-ray. COMPARISON: January 23, [address] January 22, 2017 FINDINGS: A large amount of formed stool is identified in the right colon, transverse colon and left colon. Sc attered gas is seen within nondilated loops of small bowel. No dilated loops of small bowel are obs erved. No organomegaly is identified. 4 mm calcification over the inferior pole right kidney appears stable. A few additional punctate 1 mm calcifications are seen over the mid and superior poles of t he right kidney. A 3 mm calcification is seen over this midportion of the left kidney. Degenerative changes are seen in the hips and spine. IMPRESSION: Large amount of formed stool throughout the colon suggesting constipation. Stable calcifications over the right kidney suggesting right renal stones. 3 mm calcification of the midportion of the left kidney, likely reflecting a left renal stone. Overall appearance is similar to prior exam. If further characterization of the abdomen is needed repeat CT should be considered. RPTAT: AA .Robin Elmore MD, Date Time Electronically viewed and signed by .Robin Elmore MD, on 01/24/2017 16:15 .P/
--- NOTE | 2017-01-24 16:15 | CONS ---
Date/Time of Note Date/Time of Note DATE: 01/24/17 TIME: 16:10 Consult Date/Type/Reason Admit Date/Time Jan 22, 2017 at 14:03 Initial Consult Date 01/22/2017 Type of Consultation: Urology Reason for Consultation Right ureteral stone Ordering Provider: MANJU ZELAYA Subjective Patient had pain this morning around 8:00 and had pain medication for it. He denies any nausea or vomiting. There is no gross hematuria Objective Vital Signs Date Time Temp Pulse Resp B/P Pulse Ox O2 Delivery O2 Flow Rate FiO2 01/24/17 14:12 98.3 81 18 117/61 97 01/24/17 08:22 21 01/22/17 14:26 Room Air Intake and Output 01/23/17 01/23/17 01/24/17 15:00 23:00 07:00 Intake Total 900 ml 1250 ml 1750 ml Output Total 1050 ml 2500 ml Balance 900 ml 200 ml -750 ml Exam Right flank tenderness and right lower quadrant tenderness Results/Medications Result Diagram: 01/24/17 0612 01/24/17 0613 Results 24 hrs Laboratory Tests Test 01/24/17 06:12 01/24/17 06:13 White Blood Count 9.1 # Red Blood Count 3.82 L Hemoglobin 11.7 L Hematocrit 35.5 L Mean Corpuscular Volume 92.9 Mean Corpuscular Hemoglobin 30.6 Mean Corpuscular Hemoglobin Concent 33.0 Red Cell Distribution Width 12.9 Platelet Count 123 L Mean Platelet Volume 11.8 H Neutrophils % 76.7 Lymphocytes % 12.0 L Monocytes % 9.4 Eosinophils % 1.4 Basophils % 0.1 Nucleated Red Blood Cells % 0.0 Neutrophils # 6.9 Lymphocytes # 1.1 Monocytes # 0.9 Eosinophils # 0.1 Basophils # 0.0 Nucleated Red Blood Cells # 0.0 Phosphorus Level 2.8 Magnesium Level 1.9 Sodium Level 143 Potassium Level 4.1 Chloride Level 114 H Carbon Dioxide Level 25 Anion Gap 8 Blood Urea Nitrogen 9 Creatinine 0.87 Glucose Level 97 Calcium Level 8.7 Medications Current Medications Tamsulosin HCl 0.4 mg 0.4 mg DAILY PO Last administered on 01/24/17t 08:46; Admin Dose 0.4 MG; Start 01/23/17 at 09:00 Sodium Chloride (NS) 1,000 ml @ 100 mls/hr Q10H IV Last administered on 12:10; Admin Dose 100 MLS/HR; Start 01/22/17 at 14:38 Ondansetron HCl (Zofran Inj) 4 mg Q6H PRN IV NAUSEA AND/OR VOMITING; Start 01/22/17 at 15:00 Acetaminophen (Tylenol Tab) 650 mg Q6H PRN PO PAIN LEVEL 1-3 OR FEVER; Start 01/22/17 at 15:00 Acetaminophen/ Hydrocodone Bitart ([place] (5/325)) 1 tab Q6H PRN PO MODERATE PAIN LEVEL 4-6; Start 01/22/17 at 15:00 Acetaminophen/ Hydrocodone Bitart ([place] (5/325)) 2 tab Q6H PRN PO SEVERE PAIN LEVEL 7-10; Start 01/22/17 at 15:00 Morphine Sulfate (morphine) 2 mg Q4H PRN IV SEVERE PAIN LEVEL 7-10 Last administered on 01/23/17 08:04; Admin Dose 2 MG; Start 01/22/17 at 15:00 Docusate Sodium (Colace) 100 mg Q12H PRN PO CONSTIPATION; Start 01/22/17 at 15: 00 Magnesium Hydroxide (Milk Of Mag) 30 ml DAILY PRN PO CONSTIPATION Last administered on 01/24/17 05:43; Admin Dose 30 ML; Start 01/22/17 at 15:00 Bisacodyl (Dulcolax Supp) 10 mg DAILY PRN [place] CONSTIPATION; Start 01/22/17 at 15 :00 Albuterol (Ventolin Hfa) 2 puff Q4H PRN INH WHEEZING AND SOB; Start 01/22/17 at 15:00 Famotidine 20 mg 20 mg DAILY PO Last administered on 01/24/17 08:46; Admin Dose 20 MG; Start 01/24/17 at 09:00 Ciprofloxacin/ Dextrose (Cipro Ivpb) 100 ml @ 100 mls/hr Q12 IV* Last administered on 01/24/17 08:46; Admin Dose 100 MLS/HR; Start 01/23/17 at 21:00 Assessment/Plan Chief Complaint/Hosp Course right ureteral stone ,KUB today did not show the stone as it may be over the sacroiliac area.His creatinine did come down today to 0.87 He is clinically better but still has not passed the stone therefore we will continue the tamsulosin, strain his urine, pain medications, repeat the KUB in the morning and if he does not pass the stone most likely on Thursday we will do ureteroscopy and laser lithotripsy and remove the stone and insert a JJ stent Problems: ANTONINA PARK MD Jan 24, 2017 16:15
[2017-01-24 20:10] VITALS: BP 119/67; PULSE 82; RESP 18
[2017-01-25 01:05] VITALS: BP 104/60; RESP 18
[2017-01-25] MEDS: SOD CHLORIDE 0.9% 1,000 ML IV SCH ×3 (02:38→23:36)
[2017-01-25 07:29] VITALS: BP 119/60; RESP 18
[2017-01-25] MEDS: TAMSULOSIN (SR) 0.4 MG CAP PO SCH (09:24)
[2017-01-25] MEDS: CIPROFLOXACIN IV* SCH ×2 (09:24→20:44)
[2017-01-25] MEDS: D5W IV* SCH ×2 (09:24→20:44)
[2017-01-25] MEDS: FAMOTIDINE 20 MG TAB PO SCH (09:24)
[2017-01-25] MEDS: MAGNESIUM HYDROXIDE 30ML CUP PO PRN (09:38)
--- NOTE | 2017-01-25 10:15 | RADRPT ---
PROCEDURE: XR Abdomen. CLINICAL INDICATION: Abdomen pain. TECHNIQUE: AP supine abdomen x-ray. COMPARISON: 01/24/2017. FINDINGS: There is a large amount of stool throughout the colon consistent with constipation. There is no evidence of obstruction. Small bilateral renal calculi are once again noted. There are degenerative changes of the spine. IMPRESSION: 1. Constipation. 2. Small bilateral renal calculi. 3. Degenerative changes of the spine. RPTAT: QQ .Freddie Thayer MD, MD Date Time Electronically viewed and signed by .Freddie Thayer MD, MD on 01/25/2017 10:15 .R/
[2017-01-25] MEDS: ALBUTEROL 0.083% (NEB) 2.5 MG/3 ML AMP HHN SCH ×2 (10:47→16:44)
--- NOTE | 2017-01-25 12:34 | PN ---
Date/Time of Note Date/Time of Note DATE: 01/25/17 TIME: 12:27 Assessment/Plan VTE Prophylaxis VTE Prophylaxis Intervention: SCD's Lines/Catheters IV C[facility]ter Type (from [facility]): Peripheral IV Urinary Cath still in place: No Assessment/Plan Assessment/Plan 76-year-old male with: 1. Right flank pain with nephrolithiasis with right hydronephrosis secondary to a 5 mm stone in the mid right ureter. Patient with one episode of mild pain, he is reporting flank pain however. No function back to normal x 2 days CBC within normal Continue IV fluids, Flomax, ciprofloxacin. Straining urine. 2. Asthma/COPD. Continue nebulizer treatments scheduled every 8 hours and patient also has as needed Ventolin. Chest x-ray already done this morning as preop in case, it is within normal. 3. Constipation: We will put patient on MiraLAX and as needed Colace. Prophylaxis: Pepcid for GI prophylaxis, SCDs for DVT prophylaxis and patient also ambulatory Disposition: Follow-up further urology recommendations today. Subjective 24 Hr Interval Summary Free Text/Dictation Patient feels okay, he did have large bowel movements yesterday as KUB and chest x-ray are showing constipation. He still feels occasional, intermittent right flank pain and pain down his right inguinal area especially while ambulating. Appreciate urology recommendation, so far there is a very good likelihood that the patient will end up needing cystoscopy/lithotripsy and JJ stent placement tomorrow. No stone passed yet per patient and none found while straining the urine. Exam/Review of Systems Vital Signs Vitals Vital Signs Date Time Temp Pulse Resp B/P Pulse Ox O2 Delivery O2 Flow Rate FiO2 01/25/17 10:47 75 18 97 21 01/25/17 07:29 98.4 119/60 01/24/17 20:10 Room Air Intake and Output 01/24/17 01/24/17 01/25/17 15:00 23:00 07:00 Intake Total 600 ml 1960 ml 1500 ml Output Total 2750 ml 1900 ml Balance 600 ml -790 ml -400 ml Exam Constitutional: alert, oriented, well developed Respiratory: clear to auscultation, normal air movement Cardiovascular: nl pulses, regular rate and rhythm Gastrointestinal: non-tender, soft Musculoskeletal: nl extremities to inspection Extremities: normal pulses 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, nl mental status, nl speech, nl strength Results Result Diagram: 01/25/17 0544 01/25/17 0544 Results 24 hrs Laboratory Tests Test 01/25/17 05:44 White Blood Count 7.5 Red Blood Count 3.89 L Hemoglobin 11.9 L Hematocrit 36.1 L Mean Corpuscular Volume 92.8 Mean Corpuscular Hemoglobin 30.6 Mean Corpuscular Hemoglobin Concent 33.0 Red Cell Distribution Width 12.9 Platelet Count 123 L Mean Platelet Volume 12.3 H Neutrophils % 70.4 Lymphocytes % 16.1 Monocytes % 11.1 H Eosinophils % 1.9 Basophils % 0.1 Nucleated Red Blood Cells % 0.0 Neutrophils # 5.2 Lymphocytes # 1.2 Monocytes # 0.8 Eosinophils # 0.1 Basophils # 0.0 Nucleated Red Blood Cells # 0.0 Sodium Level 143 Potassium Level 4.2 Chloride Level 111 H Carbon Dioxide Level 24 Anion Gap 12 Blood Urea Nitrogen 8 Creatinine 0.72 Glucose Level 94 Calcium Level 8.5 Phosphorus Level 3.0 Magnesium Level 1.9 Imaging Free Text/Dictation PROCEDURE: XR Abdomen. CLINICAL INDICATION: Abdomen pain. TECHNIQUE: AP supine abdomen x-ray. COMPARISON: 01/24/2017. FINDINGS: There is a large amount of stool throughout the colon consistent with constipation. There is no evidence of obstruction. Small bilateral renal calculi are once again noted. There are degenerative changes of the spine. IMPRESSION: 1. Constipation. 2. Small bilateral renal calculi. 3. Degenerative changes of the spine. RPTAT: QQ .Freddie Thayer MD, MD Date Time Electronically viewed and signed by .Freddie Thayer MD, on 01/25/2017 10:15 Medications Medications Current Medications Tamsulosin HCl 0.4 mg 0.4 mg DAILY PO Last administered on 01/25/17 09:24; Admin Dose 0.4 MG; Start 01/23/17 at 09:00 Sodium Chloride (NS) 1,000 ml @ 100 mls/hr Q10H IV Last administered on 09:24; Admin Dose 100 MLS/HR; Start 01/22/17 at 14:38 Ondansetron HCl (Zofran Inj) 4 mg Q6H PRN IV NAUSEA AND/OR VOMITING; Start 01/22/17 at 15:00 Acetaminophen (Tylenol Tab) 650 mg Q6H PRN PO PAIN LEVEL 1-3 OR FEVER; Start 01/22/17 at 15:00 Acetaminophen/ Hydrocodone Bitart ([place] (5/325)) 1 tab Q6H PRN PO MODERATE PAIN LEVEL 4-6; Start 01/22/17 at 15:00 Acetaminophen/ Hydrocodone Bitart ([place] (5/325)) 2 tab Q6H PRN PO SEVERE PAIN LEVEL 7-10; Start 01/22/17 at 15:00 Morphine Sulfate (morphine) 2 mg Q4H PRN IV SEVERE PAIN LEVEL 7-10 Last administered on 01/23/17 08:04; Admin Dose 2 MG; Start 01/22/17 at 15:00 Docusate Sodium (Colace) 100 mg Q12H PRN PO CONSTIPATION; Start 01/22/17 at 15: 00 Magnesium Hydroxide (Milk Of Mag) 30 ml DAILY PRN PO CONSTIPATION Last administered on 01/25/17 09:38; Admin Dose 30 ML; Start 01/22/17 at 15:00 Bisacodyl (Dulcolax Supp) 10 mg DAILY PRN [place] CONSTIPATION; Start 01/22/17 at 15 :00 Albuterol (Ventolin Hfa) 2 puff Q4H PRN INH WHEEZING AND SOB; Start 01/22/17 at 15:00 Famotidine 20 mg 20 mg DAILY PO Last administered on 01/25/17 09:24; Admin Dose 20 MG; Start 01/24/17 at 09:00 Ciprofloxacin/ Dextrose (Cipro Ivpb) 100 ml @ 100 mls/hr Q12 IV* Last administered on 01/25/17 09:24; Admin Dose 100 MLS/HR; Start 01/23/17 at 21:00 MANJU ZELAYA Jan 25, 2017 12:34
[2017-01-25] MEDS: POLYETHYLENE GLYCOL 17 GM PACKET PO SCH (13:20)
[2017-01-25 14:42] VITALS: BP 83/54; RESP 18
[2017-01-25 16:49] VITALS: BP 109/60; PULSE 77; RESP 18
--- NOTE | 2017-01-25 19:06 | CONS ---
Date/Time of Note Date/Time of Note DATE: 01/25/17 TIME: 19:03 Consult Date/Type/Reason Admit Date/Time Jan 22, 2017 at 14:03 Initial Consult Date 01/22/2017 Type of Consultation: Urology Ordering Provider: MANJU ZELAYA Subjective Right flank pain, last severe pain was last night, he did not pass any stone yet and he has been straining the urine all the time Objective Vital Signs Date Time Temp Pulse Resp B/P Pulse Ox O2 Delivery O2 Flow Rate FiO2 01/25/17 16:49 77 18 109/60 Room Air 01/25/17 16:45 99 21 01/25/17 14:42 98.2 Intake and Output 01/24/17 01/24/17 01/25/17 15:00 23:00 07:00 Intake Total 600 ml 1960 ml 1500 ml Output Total 2750 ml 1900 ml Balance 600 ml -790 ml -400 ml Exam Right flank tenderness, no tenderness on the left side. Results/Medications Result Diagram: 01/25/17 0544 01/25/17 0544 Results 24 hrs Laboratory Tests Test 01/25/17 05:44 White Blood Count 7.5 Red Blood Count 3.89 L Hemoglobin 11.9 L Hematocrit 36.1 L Mean Corpuscular Volume 92.8 Mean Corpuscular Hemoglobin 30.6 Mean Corpuscular Hemoglobin Concent 33.0 Red Cell Distribution Width 12.9 Platelet Count 123 L Mean Platelet Volume 12.3 H Neutrophils % 70.4 Lymphocytes % 16.1 Monocytes % 11.1 H Eosinophils % 1.9 Basophils % 0.1 Nucleated Red Blood Cells % 0.0 Neutrophils # 5.2 Lymphocytes # 1.2 Monocytes # 0.8 Eosinophils # 0.1 Basophils # 0.0 Nucleated Red Blood Cells # 0.0 Sodium Level 143 Potassium Level 4.2 Chloride Level 111 H Carbon Dioxide Level 24 Anion Gap 12 Blood Urea Nitrogen 8 Creatinine 0.72 Glucose Level 94 Calcium Level 8.5 Phosphorus Level 3.0 Magnesium Level 1.9 Medications Current Medications Tamsulosin HCl 0.4 mg 0.4 mg DAILY PO Last administered on 01/25/17 09:24; Admin Dose 0.4 MG; Start 01/23/17 at 09:00 Sodium Chloride (NS) 1,000 ml @ 100 mls/hr Q10H IV Last administered on 09:24; Admin Dose 100 MLS/HR; Start 01/22/17 at 14:38 Ondansetron HCl (Zofran Inj) 4 mg Q6H PRN IV NAUSEA AND/OR VOMITING; Start 01/22/17 at 15:00 Acetaminophen (Tylenol Tab) 650 mg Q6H PRN PO PAIN LEVEL 1-3 OR FEVER; Start 01/22/17 at 15:00 Acetaminophen/ Hydrocodone Bitart ([place] (5/325)) 1 tab Q6H PRN PO MODERATE PAIN LEVEL 4-6; Start 01/22/17 at 15:00 Acetaminophen/ Hydrocodone Bitart ([place] (5/325)) 2 tab Q6H PRN PO SEVERE PAIN LEVEL 7-10; Start 01/22/17 at 15:00 Morphine Sulfate (morphine) 2 mg Q4H PRN IV SEVERE PAIN LEVEL 7-10 Last administered on 01/23/17 08:04; Admin Dose 2 MG; Start 01/22/17 at 15:00 Docusate Sodium (Colace) 100 mg Q12H PRN PO CONSTIPATION; Start 01/22/17 at 15: 00 Magnesium Hydroxide (Milk Of Mag) 30 ml DAILY PRN PO CONSTIPATION Last administered on 01/25/17 09:38; Admin Dose 30 ML; Start 01/22/17 at 15:00 Bisacodyl (Dulcolax Supp) 10 mg DAILY PRN [place] CONSTIPATION; Start 01/22/17 at 15 :00 Albuterol (Ventolin Hfa) 2 puff Q4H PRN INH WHEEZING AND SOB; Start 01/22/17 at 15:00 Famotidine 20 mg 20 mg DAILY PO Last administered on 01/25/17 09:24; Admin Dose 20 MG; Start 01/24/17 at 09:00 Ciprofloxacin/ Dextrose (Cipro Ivpb) 100 ml @ 100 mls/hr Q12 IV* Last administered on 01/25/17 09:24; Admin Dose 100 MLS/HR; Start 01/23/17 at 21:00 Polyethylene Glycol (Miralax) 17 gm DAILY PO Last administered on 01/25/17 13: 20; Admin Dose 17 GM; Start 01/25/17 at 13:00 Assessment/Plan Chief Complaint/Hosp Course right ureteral stone ,KUB today still does not show the stone.His creatinine did come down to normal He is clinically better but still has not passed the stone therefore we will continue the tamsulosin, strain his urine, pain medications, repeat the KUB in the morning and if he does not pass the stone, most likely we will do ureteroscopy and laser lithotripsy and remove the stone and insert a JJ stent tomorrow at 5:30 PM I did explain the procedure to the patient, the benefits, the risks, the possible complications, success and failure and the placement of a JJ stent which will need to be removed later on. I answered all his questions and he is agreeable to proceed Problems: ANTONINA PARK MD Jan 25, 2017 19:06
[2017-01-25 19:21] VITALS: BP 107/62; RESP 20
[2017-01-26 01:56] VITALS: BP 113/55; RESP 20
[2017-01-26 07:46] VITALS: BP 131/68; RESP 20
[2017-01-26] MEDS: ALBUTEROL 0.083% (NEB) 2.5 MG/3 ML AMP HHN SCH ×3 (08:00→16:00)
[2017-01-26] MEDS: POLYETHYLENE GLYCOL 17 GM PACKET PO SCH (08:54)
[2017-01-26] MEDS: D5W IV* SCH (08:54)
[2017-01-26] MEDS: TAMSULOSIN (SR) 0.4 MG CAP PO SCH ×2 (08:54→08:55)
[2017-01-26] MEDS: FAMOTIDINE 20 MG TAB PO SCH (08:54)
[2017-01-26] MEDS: CIPROFLOXACIN IV* SCH (08:54)
--- NOTE | 2017-01-26 10:46 | RADRPT ---
PROCEDURE: XR Abdomen. CLINICAL INDICATION: Urinary tract calculi. TECHNIQUE: AP supine abdomen x-ray. COMPARISON: 01/25/2017. FINDINGS: There is a large amount of stool throughout the colon consistent with constipation, improved. The [place] wel gas pattern is otherwise normal with no evidence of obstruction. Small bilateral renal calculi are once again noted. There are degenerative changes of the spine. IMPRESSION: 1. Improved constipation. 2. No other change from 01/25/2017. RPTAT: QQ .Freddie Thayer MD, MD Date Time Electronically viewed and signed by .Freddie Thayer MD, MD on 01/26/2017 10:46 .R/
--- NOTE | 2017-01-26 11:19 | RADRPT ---
PROCEDURE: CT Abdomen and Pelvis without contrast. CLINICAL INDICATION: Right ureteral stone. TECHNIQUE: Multiple contiguous axial CT images of the abdomen and pelvis were obtained without the administration of intravenous contrast. Coronal and sagittal reconstructions were also performed. CTDIvol (mGy): 5.24; Total Exam DLP (mGy-cm): 288.06. One or more of the following dose reduction techniques were utilized: - Automated exposure control. - Adjustment of the mA and/or kV according to patient size. - Use of iterative reconstruction technique. COMPARISON: CT abdomen/pelvis 01/22/2017. FINDINGS: Limited imaging of the lower thorax demonstrates mild bronchial wall thickening of the lower lobe ai rways. The liver and spleen are homogeneous in density. The gallbladder, pancreas and adrenal glands are u nremarkable. The kidneys are symmetric in size. There is a 4 mm stone within the lower pole of the right kidney, which is unchanged. There is a 3-4 mm stone within the upper pole of the right kidney, which is also unchanged. The 3 mm stone seen within the interpolar region of the right kidney is no longer observ ed. There is a 2-3 mm stone within the midportion of the right ureter at the level of L4, which is u nchanged. There are approximately 4 tiny stones within the left intrarenal collecting system, with t he largest measuring 3 mm. These are unchanged from prior examination. Mild right hydronephrosis is present and unchanged. There is no substantial perinephric edema. Abdominal aortic atherosclerotic calcification is present with mild focal dilatation of the infraren al abdominal aorta measuring 3.5 cm in greatest transverse dimension. There is no periaortic / retro peritoneal lymphadenopathy. A small hiatal hernia is present. The small intestines are unremarkable. The appendix is normal. Div erticulosis of the descending and sigmoid colon is observed. There is mild inflammatory fat strandin g surrounding the proximal mid sigmoid colon within the left lower abdomen suggesting mild acute div erticulitis. There is no free intra-abdominal air. There is no intra-abdominal fluid collection. The bladder is partially distended and normal in contour. The prostate gland is enlarged measuring a pproximately 5.3 x 4.8 x 3.9 cm yielding a volume of 52 cc. The seminal vesicles are unremarkable. T here is no free pelvic fluid. There is no pelvic sidewall or inguinal lymphadenopathy. Degenerative changes of the spine are observed. Body wall soft tissues are unremarkable. IMPRESSION: Bilateral nephrolithiasis. Passage of a tiny intrarenal stone within the right kidney is now observe d. There is persistence of a small stone within the midportion of the right ureter, which is unchang ed in position. Mild right hydronephrosis is present and slightly improved. Perinephric edema has re solved. Diverticulosis of the distal colon with mild fat stranding surrounding the proximal mid sigmoid colo n. Imaging findings may reflect mild acute diverticulitis. Correlate with additional clinical data. Aortoiliac atherosclerosis with mild focal dilatation of the infrarenal abdominal aorta. Enlarged prostate gland. RPTAT: HLST .Alysia Woody MD, MD Date Time Electronically viewed and signed by .Alysia Woody MD, on 01/26/2017 11:18 .T/
[2017-01-26] MEDS: SOD CHLORIDE 0.9% 1,000 ML IV SCH ×2 (13:06→18:38)
--- NOTE | 2017-01-26 13:06 | PN ---
Date/Time of Note Date/Time of Note DATE: 01/26/17 TIME: 12:47 Assessment/Plan VTE Prophylaxis VTE Prophylaxis Intervention: SCD's Lines/Catheters IV Catheter Type (from [facility]): Peripheral IV Urinary Cath still in place: No Assessment/Plan Assessment/Plan 76-year-old male with: 1. Right flank pain with nephrolithiasis with right hydronephrosis secondary to a 5 mm stone in the mid right ureter. Patient with one episode of mild pain, he is reporting flank pain however. No function back to normal x 2 days. CBC within normal Continue IV fluids, Flomax, ciprofloxacin. Straining urine. Per Urology to proceed with OR this evening 2. Asthma/COPD. Continue nebulizer treatments scheduled every 8 hours and patient also has as needed Ventolin. Chest x-ray already done on admission as preop. It is within normal. 3. Constipation: improving and multiple BMs with MiraLAX and as needed Colace. Prophylaxis: Pepcid for GI prophylaxis, SCDs for DVT prophylaxis and patient also ambulatory Disposition: OR today Subjective 24 Hr Interval Summary Free Text/Dictation Patient remains stable but still did not pass right mid ureteral 5 mm stone Exam/Review of Systems Vital Signs Vitals Vital Signs Date Time Temp Pulse Resp B/P Pulse Ox O2 Delivery O2 Flow Rate FiO2 01/26/17 07:46 97.9 65 20 131/68 98 01/26/17 00:02 21 01/25/17 16:49 Room Air Intake and Output 01/25/17 01/25/17 01/26/17 15:00 23:00 07:00 Intake Total 500 ml 2020 ml 1360 ml Output Total 1300 ml 1325 ml Balance 500 ml 720 ml 35 ml Exam Constitutional: alert, oriented, well developed Respiratory: clear to auscultation, normal air movement Cardiovascular: nl pulses, regular rate and rhythm Gastrointestinal: non-tender, soft Musculoskeletal: nl extremities to inspection, nl gait and stance Extremities: normal pulses, other (no edema, clubbing or cyanosis ) 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, nl mental status, nl speech, nl strength Results Result Diagram: 01/26/17 0551 01/26/17 0551 Results 24 hrs Laboratory Tests Test 01/26/17 05:51 White Blood Count 6.5 Red Blood Count 3.91 L Hemoglobin 11.9 L Hematocrit 36.6 L Mean Corpuscular Volume 93.6 Mean Corpuscular Hemoglobin 30.4 Mean Corpuscular Hemoglobin Concent 32.5 Red Cell Distribution Width 12.8 Platelet Count 132 L Mean Platelet Volume 12.0 H Neutrophils % 67.0 Lymphocytes % 19.4 Monocytes % 10.2 Eosinophils % 2.6 Basophils % 0.3 Nucleated Red Blood Cells % 0.0 Neutrophils # 4.4 Lymphocytes # 1.3 Monocytes # 0.7 Eosinophils # 0.2 Basophils # 0.0 Nucleated Red Blood Cells # 0.0 Sodium Level 143 Potassium Level 4.1 Chloride Level 110 Carbon Dioxide Level 25 Anion Gap 12 Blood Urea Nitrogen 11 Creatinine 0.75 Glucose Level 94 Calcium Level 8.6 Medications Medications Current Medications Tamsulosin HCl 0.4 mg 0.4 mg DAILY PO Last administered on 01/26/17 08:55; Admin Dose 0.4 MG; Start 01/23/17 at 09:00 Sodium Chloride (NS) 1,000 ml @ 100 mls/hr Q10H IV Last administered on 23:36; Admin Dose 100 MLS/HR; Start 01/22/17 at 14:38 Ondansetron HCl (Zofran Inj) 4 mg Q6H PRN IV NAUSEA AND/OR VOMITING; Start 01/22/17 at 15:00 Acetaminophen (Tylenol Tab) 650 mg Q6H PRN PO PAIN LEVEL 1-3 OR FEVER; Start 01/22/17 at 15:00 Acetaminophen/ Hydrocodone Bitart ([place] (5/325)) 1 tab Q6H PRN PO MODERATE PAIN LEVEL 4-6; Start 01/22/17 at 15:00 Acetaminophen/ Hydrocodone Bitart ([place] (5/325)) 2 tab Q6H PRN PO SEVERE PAIN LEVEL 7-10; Start 01/22/17 at 15:00 Morphine Sulfate (morphine) 2 mg Q4H PRN IV SEVERE PAIN LEVEL 7-10 Last administered on 01/23/17 08:04; Admin Dose 2 MG; Start 01/22/17 at 15:00 Docusate Sodium (Colace) 100 mg Q12H PRN PO CONSTIPATION; Start 01/22/17 at 15: 00 Magnesium Hydroxide (Milk Of Mag) 30 ml DAILY PRN PO CONSTIPATION Last administered on 01/25/17 09:38; Admin Dose 30 ML; Start 01/22/17 at 15:00 Bisacodyl (Dulcolax Supp) 10 mg DAILY PRN [place] CONSTIPATION; Start 01/22/17 at 15 :00 Albuterol (Ventolin Hfa) 2 puff Q4H PRN INH WHEEZING AND SOB; Start 01/22/17 at 15:00 Famotidine (Pepcid) 20 mg DAILY PO Last administered on 01/26/17 08:54; Admin Dose 20 MG; Start 01/24/17 at 09:00 Polyethylene Glycol (Miralax) 17 gm DAILY PO Last administered on 01/25/17 13: 20; Admin Dose 17 GM; Start 01/25/17 at 13:00 Ciprofloxacin (Cipro) 250 mg BID@ PO ; Start 01/26/17 at 18:00 MANJU ZELAYA Jan 26, 2017 13:02
--- NOTE | 2017-01-26 13:06 | PN ---
Date/Time of Note Date/Time of Note DATE: 01/26/17 TIME: 12:47 Assessment/Plan VTE Prophylaxis VTE Prophylaxis Intervention: SCD's Lines/Catheters [facility] ([facility]): Peripheral IV Urinary Cath still in place: No Assessment/Plan Assessment/Plan 76-year-old male with: 1. Right flank pain with nephrolithiasis with right hydronephrosis secondary to a 5 mm stone in the mid right ureter. Patient with one episode of mild pain, he is reporting flank pain however. No function back to normal x 2 days. CBC within normal Continue IV fluids, Flomax, ciprofloxacin. Straining urine. Per Urology to proceed with OR this evening 2. Asthma/COPD. Continue nebulizer treatments scheduled every 8 hours and patient also has as needed Ventolin. Chest x-ray already done on admission as preop. It is within normal. 3. Constipation: improving and multiple BMs with MiraLAX and as needed Colace. Prophylaxis: Pepcid for GI prophylaxis, SCDs for DVT prophylaxis and patient also ambulatory Disposition: OR today Subjective 24 Hr Interval Summary Free Text/Dictation Patient remains stable but still did not pass right mid ureteral 5 mm stone Exam/Review of Systems Vital Signs Vitals Vital Signs Date Time Temp Pulse Resp B/P Pulse Ox O2 Delivery O2 Flow Rate FiO2 01/26/17 07:46 97.9 65 20 131/68 98 01/26/17 00:02 21 01/25/17 16:49 Room Air Intake and Output 01/25/17 01/25/17 01/26/17 15:00 23:00 07:00 Intake Total 500 ml 2020 ml 1360 ml Output Total 1300 ml 1325 ml Balance 500 ml 720 ml 35 ml Exam Constitutional: alert, oriented, well developed Respiratory: clear to auscultation, normal air movement Cardiovascular: nl pulses, regular rate and rhythm Gastrointestinal: non-tender, soft Musculoskeletal: nl extremities to inspection, nl gait and stance Extremities: normal pulses, other (no edema, clubbing or cyanosis ) 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: 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, nl mental status, nl speech, nl strength Results Result Diagram: 01/26/17 0551 01/26/17 0551 Results 24 hrs Laboratory Tests Test 01/26/17 05:51 White Blood Count 6.5 Red Blood Count 3.91 L Hemoglobin 11.9 L Hematocrit 36.6 L Mean Corpuscular Volume 93.6 Mean Corpuscular Hemoglobin 30.4 Mean Corpuscular Hemoglobin Concent 32.5 Red Cell Distribution Width 12.8 Platelet Count 132 L Mean Platelet Volume 12.0 H Neutrophils % 67.0 Lymphocytes % 19.4 Monocytes % 10.2 Eosinophils % 2.6 Basophils % 0.3 Nucleated Red Blood Cells % 0.0 Neutrophils # 4.4 Lymphocytes # 1.3 Monocytes # 0.7 Eosinophils # 0.2 Basophils # 0.0 Nucleated Red Blood Cells # 0.0 Sodium Level 143 Potassium Level 4.1 Chloride Level 110 Carbon Dioxide Level 25 Anion Gap 12 Blood Urea Nitrogen 11 Creatinine 0.75 Glucose Level 94 Calcium Level 8.6 Medications Medications Current Medications Tamsulosin HCl 0.4 mg 0.4 mg DAILY PO Last administered on 01/26/17 08:55; Admin Dose 0.4 MG; Start 01/23/17 at 09:00 Sodium Chloride (NS) 1,000 ml @ 100 mls/hr Q10H IV Last administered on 23:36; Admin Dose 100 MLS/HR; Start 01/22/17 at 14:38 Ondansetron HCl (Zofran Inj) 4 mg Q6H PRN IV NAUSEA AND/OR VOMITING; Start 01/22/17 at 15:00 Acetaminophen (Tylenol Tab) 650 mg Q6H PRN PO PAIN LEVEL 1-3 OR FEVER; Start 01/22/17 at 15:00 Acetaminophen/ Hydrocodone Bitart ([place] (5/325)) 1 tab Q6H PRN PO MODERATE PAIN LEVEL 4-6; Start 01/22/17 at 15:00 Acetaminophen/ Hydrocodone Bitart ([place] (5/325)) 2 tab Q6H PRN PO SEVERE PAIN LEVEL 7-10; Start 01/22/17 at 15:00 Morphine Sulfate (morphine) 2 mg Q4H PRN IV SEVERE PAIN LEVEL 7-10 Last administered on 01/23/17 08:04; Admin Dose 2 MG; Start 01/22/17 at 15:00 Docusate Sodium (Colace) 100 mg Q12H PRN PO CONSTIPATION; Start 01/22/17 at 15: 00 Magnesium Hydroxide (Milk Of Mag) 30 ml DAILY PRN PO CONSTIPATION Last administered on 01/25/17 09:38; Admin Dose 30 ML; Start 01/22/17 at 15:00 Bisacodyl (Dulcolax Supp) 10 mg DAILY PRN [place] CONSTIPATION; Start 01/22/17 at 15 :00 Albuterol (Ventolin Hfa) 2 puff Q4H PRN INH WHEEZING AND SOB; Start 01/22/17 at 15:00 Famotidine (Pepcid) 20 mg DAILY PO Last administered on 01/26/17 08:54; Admin Dose 20 MG; Start 01/24/17 at 09:00 Polyethylene Glycol (Miralax) 17 gm DAILY PO Last administered on 01/25/17 13: 20; Admin Dose 17 GM; Start 01/25/17 at 13:00 Ciprofloxacin (Cipro) 250 mg BID@ PO ; Start 01/26/17 at 18:00 MANJU ZELAYA Jan 26, 2017 13:02
[2017-01-26] MEDS ORDERED: METHYLENE BLUE 1% 10 ML INJ ONE (17:43)
[2017-01-26] MEDS ORDERED: PROPOFOL 20 ML ONE (17:54)
[2017-01-26] MEDS ORDERED: FENTAnyl 50 MCG/ML VIAL ONE ×2 (17:54→19:41)
[2017-01-26] MEDS ORDERED: ROCURONIUM 50 MG INJ ONE ×2 (17:54→20:34)
[2017-01-26] MEDS: CIPROFLOXACIN 250 MG TAB PO SCH (18:00)
[2017-01-26] MEDS ORDERED: NEOSTIGMINE 3 MG/3 ML SYRINGE ONE (20:33)
[2017-01-26] MEDS ORDERED: CEFAZOLIN 1 GM INJ ONE (20:34)
[2017-01-26] MEDS ORDERED: LIDOCAINE 2% (SDV) 5 ML INJ ONE (20:34)
[2017-01-26] MEDS ORDERED: GLYCOPYRROLATE 0.4 MG INJ ONE (20:34)
[2017-01-26 21:30] VITALS: BP 155/67; PULSE 73; RESP 18
--- NOTE | 2017-01-26 21:58 | RADRPT ---
PROCEDURE: Intraoperative imaging of the abdomen and pelvis with fluoroscopy. CLINICAL INDICATION: Abdominal pain. Intraoperative. TECHNIQUE: 18 images of the abdomen and pelvis were obtained in the operating room with an image i ntensifier. No radiologist was in attendance. Fluoroscopy time is 169 seconds. COMPARISON: CT scan of the abdomen and pelvis earlier the same day. FINDINGS: Images demonstrate instrumentation of the right ureter and right renal pelvis. Final images demonstr ate placement of a double pigtail right ureteral stent. IMPRESSION: 1. Satisfactory intraoperative imaging of the abdomen and pelvis. RPTAT: QQ .Freddie Thayer MD, Date Time Electronically viewed and signed by .Freddie Thayer MD, on 01/26/2017 21:20 .R/
[2017-01-26 22:00] VITALS: BP 150/66; PULSE 72; RESP 18
[2017-01-26 23:00] VITALS: BP 144/72; PULSE 74; RESP 16
[2017-01-27] VITALS: BP 143/74; PULSE 77; RESP 18
[2017-01-27] MEDS: ALBUTEROL 0.083% (NEB) 2.5 MG/3 ML AMP HHN SCH ×2 (00:44→07:57)
[2017-01-27 02:03] VITALS: BP 122/65; RESP 20
[2017-01-27 04:00] VITALS: BP 141/76; PULSE 70; RESP 18
--- NOTE | 2017-01-27 04:31 | OPR ---
DATE OF OPERATION: 01/26/2017 PREOPERATIVE DIAGNOSIS: Right upper ureteral stone. POSTOPERATIVE DIAGNOSIS: Right upper ureteral stone. OPERATION PERFORMED: Cystoscopy, right ureteral pyeloscopy, laser lithotripsy and insertion of righ t ureteral JJ stent. TECHNIQUE: The patient was brought to the operating room. General anesthesia was induced. The pat ient was positioned in the lithotomy position. The genital area was prepped and draped in the usual sterile manner. A time out was done. The patient was identified by his name, date and the p rocedure. The patient was given 2 grams of Ancef IV at the start of the procedure. A #21 [place] cy stoscope sheath was introduced under direct vision through the penile urethra all the way to the zhanna dder. Once in the bladder, the right ureteral orifice was identified and visualized, then cannulate d with a 5-[place] open-ended ureteral catheter, and then under fluoroscopy, the 0.035 Glidewire was passed through the lumen of the 5-[place] open-ended and advanced under fluoroscopy, all the way up t o the kidney. Once it reached the level of the stone around the L4 vertebral body, it met some resi stance, but with some manipulation, was able to advance it all the way up to the kidney. Then, I re moved the open-ended and reintroduced it through the second working channel, and again passed it int o the right ureteral orifice and through that, I passed a 0.035 sensor wire that went up to the kidn ey as well. Then I removed the open-ended and kept the [address], removed the cystoscope. T he sensor wire was used as a safety wire and the Glidewire was used to advance on it the access elliott th, which was 11 x 13 mm outside diameter and 36 cm long. That was advanced, but it would advance o nly to around the sacroiliac area, would not advance higher, the ureter was tight in there. So then I advanced the digital flexible ureteroscope through the access sheath and it reached the level of the ureter, where it was tight and even the digital ureteroscope would not advance. So at that mome nt, I went ahead and removed the access sheath and the digital ureteroscope, and then I used a dual- lumen ureteral catheter and advanced it on the sensor wire, all the way up to the kidney and that al lowed the ureter to dilate a little bit. Then I did pass the Glidewire again through the second wor raulito channel of the dual lumen and went up to the kidney. Then, the dual lumen was removed and agai n the sensor wire was used as a safety wire, and the Glidewire was used to advance on it the access sheath. The access sheath was then advanced and then I removed the obturator of the access sheath a nd kept the Glidewire in place, and on the Glidewire, I advanced the digital ureteroscope and I was able to advance it, and then advanced it all the way up to the kidney. I looked into the ureter and it appeared that the stone in the ureter did move up into the kidney. As it moved up into the kidn ey, I then used the 200 micron holmium laser fiber and broke the stone into smaller pieces. I was a ble to basket 1 piece first out, then I tried to basket the second one, but the second one was big, it would not come down. So I had to dislodge it from the basket and then also treated it again with holmium laser, until I broke it into multiple smaller pieces as well. Then, I basketed these piece s and again there were times that the stone would get stuck in the ureter, so I had to also do holmi um laser on the stone in the ureter itself. After that, I did basket all the stone fragments out of the ureter and also out of the kidney, and there were no residual stones that were big enough to ne ed to be basketed. If there was anything, it would be like sand, very small. I inspected all the c alices in the kidney, upper pole, middle pole and lower pole and there were no additional stones. I inspected the ureter all the way out and there were no residual stones in the ureter. At the end o f the procedure, the ureteroscope was removed. The cystoscope was reintroduced on the safety wire a nd on the safety wire, I advanced the 6-B[place]an x 22 cm long JJ stent, had its proximal end curl into the kidney and the distal end curling into the bladder. The distal end was attached to a string th at was brought out through the urethra and taped on to the penis with 2 pieces of Tegaderm. The pat ient tolerated the procedure well and was transferred to recovery room in stable and satisfactory co ndition. Dictated By: ANTONINA MANUEL/KUMAR Conf#: [id number] DID#: [id number] CC: MANJU ZELAYA MD;*EndCC*
[2017-01-27] MEDS: CIPROFLOXACIN 250 MG TAB PO SCH (06:10)
[2017-01-27] MEDS: SOD CHLORIDE 0.9% 1,000 ML IV SCH (06:10)
[2017-01-27 07:26] VITALS: BP 125/74; RESP 16
[2017-01-27] MEDS: POLYETHYLENE GLYCOL 17 GM PACKET PO SCH (09:31)
[2017-01-27] MEDS: FAMOTIDINE 20 MG TAB PO SCH (09:31)
[2017-01-27] MEDS: TAMSULOSIN (SR) 0.4 MG CAP PO SCH (09:31)
[2017-01-27 13:36] VITALS: BP 126/66; RESP 16
--- NOTE | 2017-01-27 15:10 | PN ---
Date/Time of Note Date/Time of Note DATE: 01/27/17 TIME: 14:53 Assessment/Plan VTE Prophylaxis VTE Prophylaxis Intervention: SCD's Lines/Catheters IV Catheter Type (from [facility]): Peripheral IV Urinary Cath still in place: No Assessment/Plan Assessment/Plan 76-year-old male with: 1. Right flank pain with nephrolithiasis with right hydronephrosis secondary to a 5 mm stone in the mid right ureter. Status post cystoscopy, lithotripsy, JJ stent placement, POD#1. Patient doing well, renal function stable, discussed with Dr. Salazar, caseyay to discharge home on oral antibiotics and per patient preference Tylenol for pain control. Follow-up with Dr. Salazar next Friday 02/02 2. Asthma/COPD. Continue nebulizer treatments scheduled every 8 hours and patient also has as needed Ventolin. 3. Constipation: Resolved Prophylaxis: Pepcid for GI prophylaxis, SCDs for DVT prophylaxis and patient also ambulatory Disposition: Discharge home today, follow-up with Dr. Salazar in 1 week. Follow with PCP within 1-2 weeks Subjective 24 Hr Interval Summary Free Text/Dictation Patient doing well today, appreciate recommendations from Dr. Salazar, patient to be discharged home with outpatient follow-up with Dr. Salazar. Exam/Review of Systems Vital Signs Vitals Vital Signs Date Time Temp Pulse Resp B/P Pulse Ox O2 Delivery O2 Flow Rate FiO2 01/27/17 13:36 97.9 64 16 126/66 100 01/27/17 08:00 Nasal Cannula 2.0 01/26/17 00:02 21 Intake and Output 01/26/17 01/26/17 01/27/17 15:00 23:00 07:00 Intake Total 660 ml 1360 ml Output Total 1400 ml 1000 ml Balance -740 ml 360 ml Exam Constitutional: alert, oriented, well developed Respiratory: clear to auscultation, normal air movement Cardiovascular: nl pulses, regular rate and rhythm Gastrointestinal: non-tender, soft Musculoskeletal: nl extremities to inspection, nl gait and stance 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, nl mental status, nl speech, nl strength Results Result Diagram: 01/27/1752201/27/17 0523 Results 24 hrs Laboratory Tests Test 01/27/17 05:23 White Blood Count 6.1 Red Blood Count 3.80 L Hemoglobin 11.3 L Hematocrit 35.1 L Mean Corpuscular Volume 92.4 Mean Corpuscular Hemoglobin 29.7 Mean Corpuscular Hemoglobin Concent 32.2 Red Cell Distribution Width 12.7 Platelet Count 135 L Mean Platelet Volume 12.0 H Neutrophils % 72.2 Lymphocytes % 15.8 Monocytes % 9.9 Eosinophils % 1.6 Basophils % 0.2 Nucleated Red Blood Cells % 0.0 Neutrophils # 4.4 Lymphocytes # 1.0 Monocytes # 0.6 Eosinophils # 0.1 Basophils # 0.0 Nucleated Red Blood Cells # 0.0 Sodium Level 142 Potassium Level 4.4 Chloride Level 109 Carbon Dioxide Level 29 Anion Gap 8 Blood Urea Nitrogen 11 Creatinine 0.83 Glucose Level 107 Calcium Level 8.8 Magnesium Level 1.9 Medications Medications Current Medications Tamsulosin HCl 0.4 mg 0.4 mg DAILY PO Last administered on 01/27/17 09:31; Admin Dose 0.4 MG; Start 01/23/17 at 09:00 Sodium Chloride (NS) 1,000 ml @ 100 mls/hr Q10H IV Last administered on 06:10; Admin Dose 100 MLS/HR; Start 01/22/17 at 14:38 Ondansetron HCl (Zofran Inj) 4 mg Q6H PRN IV NAUSEA AND/OR VOMITING; Start 01/22/17 at 15:00 Acetaminophen (Tylenol Tab) 650 mg Q6H PRN PO PAIN LEVEL 1-3 OR FEVER Last administered on 01/27/17 13:54; Admin Dose 650 MG; Start 01/22/17 at 15:00 Acetaminophen/ Hydrocodone Bitart ([place] (5/325)) 1 tab Q6H PRN PO MODERATE PAIN LEVEL 4-6; Start 01/22/17 at 15:00 Acetaminophen/ Hydrocodone Bitart ([place] (5/325)) 2 tab Q6H PRN PO SEVERE PAIN LEVEL 7-10; Start 01/22/17 at 15:00 Morphine Sulfate (morphine) 2 mg Q4H PRN IV SEVERE PAIN LEVEL 7-10 Last administered on 01/23/17 08:04; Admin Dose 2 MG; Start 01/22/17 at 15:00 Docusate Sodium (Colace) 100 mg Q12H PRN PO CONSTIPATION; Start 01/22/17 at 15: 00 Magnesium Hydroxide (Milk Of Mag) 30 ml DAILY PRN PO CONSTIPATION Last administered on 01/25/17 09:38; Admin Dose 30 ML; Start 01/22/17 at 15:00 Bisacodyl (Dulcolax Supp) 10 mg DAILY PRN OR CONSTIPATION; Start 01/22/17 at 15 :00 Albuterol (Ventolin Hfa) 2 puff Q4H PRN INH WHEEZING AND SOB; Start 01/22/17 at 15:00 Famotidine (Pepcid) 20 mg DAILY PO Last administered on 01/27/17 09:31; Admin Dose 20 MG; Start 01/24/17 at 09:00 Polyethylene Glycol (Miralax) 17 gm DAILY PO Last administered on 01/27/17 09: 31; Admin Dose 17 GM; Start 01/25/17 at 13:00 Ciprofloxacin (Cipro) 250 mg BID@18 PO Last administered on 01/27/17 06:10 ; Admin Dose 250 MG; Start 01/26/17 at 18:00 MANJU ZELAYA Jan 27, 2017 15:06
--- NOTE | 2017-01-27 15:12 | PDOCDIS ---
Discharge Instructions CONDITION Patient Condition: Good HOME CARE INSTRUCTIONS: Special Diet: regular ACTIVITY: Activity Restrictions: No Restrictions FOLLOW UP/APPOINTMENTS Follow-up Plan Follow-up with urology, Dr. Salazar, Thursday02/02/17 Follow-up with primary care physician within 1 week MANJU ZELAYA Jan 27, 2017 15:12
[2017-01-27] MEDS ORDERED: ACET325T40 PO (15:13)
[2017-01-27] MEDS ORDERED: CIPR-193 PO (15:13)
--- NOTE | 2017-01-27 15:54 | CONS ---
Date/Time of Note Date/Time of Note DATE: 01/27/17 TIME: 15:49 Consult Date/Type/Reason Admit Date/Time Jan 22, 2017 at 14:03 Initial Consult Date 01/22/2017 Type of Consultation: Urology Reason for Consultation Right upper urteral stone Ordering Provider: MANJU ZELAYA Subjective pain right flank,blood tinged urine Objective Vital Signs Date Time Temp Pulse Resp B/P Pulse Ox O2 Delivery O2 Flow Rate FiO2 01/27/17 13:36 97.9 64 16 126/66 100 01/27/17 08:00 Nasal Cannula 2.0 01/26/17 00:02 21 Intake and Output 01/26/17 01/26/17 01/27/17 15:00 23:00 07:00 Intake Total 660 ml 1360 ml Output Total 1400 ml 1000 ml Balance -740 ml 360 ml Results/Medications Result Diagram: 01/27/17 0523 01/27/17 0523 Results 24 hrs Laboratory Tests Test 01/27/17 05:23 White Blood Count 6.1 Red Blood Count 3.80 L Hemoglobin 11.3 L Hematocrit 35.1 L Mean Corpuscular Volume 92.4 Mean Corpuscular Hemoglobin 29.7 Mean Corpuscular Hemoglobin Concent 32.2 Red Cell Distribution Width 12.7 Platelet Count 135 L Mean Platelet Volume 12.0 H Neutrophils % 72.2 Lymphocytes % 15.8 Monocytes % 9.9 Eosinophils % 1.6 Basophils % 0.2 Nucleated Red Blood Cells % 0.0 Neutrophils # 4.4 Lymphocytes # 1.0 Monocytes # 0.6 Eosinophils # 0.1 Basophils # 0.0 Nucleated Red Blood Cells # 0.0 Sodium Level 142 Potassium Level 4.4 Chloride Level 109 Carbon Dioxide Level 29 Anion Gap 8 Blood Urea Nitrogen 11 Creatinine 0.83 Glucose Level 107 Calcium Level 8.8 Magnesium Level 1.9 Medications Current Medications Tamsulosin HCl 0.4 mg 0.4 mg DAILY PO Last administered on 01/27/17 09:31; Admin Dose 0.4 MG; Start 01/23/17 at 09:00 Sodium Chloride (NS) 1,000 ml @ 100 mls/hr Q10H IV Last administered on 06:10; Admin Dose 100 MLS/HR; Start 01/22/17 at 14:38 Ondansetron HCl (Zofran Inj) 4 mg Q6H PRN IV NAUSEA AND/OR VOMITING; Start 01/22/17 at 15:00 Acetaminophen (Tylenol Tab) 650 mg Q6H PRN PO PAIN LEVEL 1-3 OR FEVER Last administered on 01/27/17 13:54; Admin Dose 650 MG; Start 01/22/17 at 15:00 Acetaminophen/ Hydrocodone Bitart ([place] (5/325)) 1 tab Q6H PRN PO MODERATE PAIN LEVEL 4-6; Start 01/22/17 at 15:00 Acetaminophen/ Hydrocodone Bitart ([place] (5/325)) 2 tab Q6H PRN PO SEVERE PAIN LEVEL 7-10; Start 01/22/17 at 15:00 Morphine Sulfate (morphine) 2 mg Q4H PRN IV SEVERE PAIN LEVEL 7-10 Last administered on 01/23/17 08:04; Admin Dose 2 MG; Start 01/22/17 at 15:00 Docusate Sodium (Colace) 100 mg Q12H PRN PO CONSTIPATION; Start 01/22/17 at 15: 00 Magnesium Hydroxide (Milk Of Mag) 30 ml DAILY PRN PO CONSTIPATION Last administered on 01/25/17 09:38; Admin Dose 30 ML; Start 01/22/17 at 15:00 Bisacodyl (Dulcolax Supp) 10 mg DAILY PRN [place] CONSTIPATION; Start 01/22/17 at 15 :00 Albuterol (Ventolin Hfa) 2 puff Q4H PRN INH WHEEZING AND SOB; Start 01/22/17 at 15:00 Famotidine (Pepcid) 20 mg DAILY PO Last administered on 01/27/17 09:31; Admin Dose 20 MG; Start 01/24/17 at 09:00 Polyethylene Glycol (Miralax) 17 gm DAILY PO Last administered on 01/27/17 09: 31; Admin Dose 17 GM; Start 01/25/17 at 13:00 Ciprofloxacin (Cipro) 250 mg BID@ PO Last administered on 01/27/17 06:10 ; Admin Dose 250 MG; Start 01/26/17 at 18:00 Assessment/Plan Chief Complaint/Hosp Course Status post right uretero-pyeloscopy,laser lithotripsy and insertion of a JJ stent Patient is doing well,pain is managed with oral pain meds He may be discharged today on pain meds,antibiotic and should follow up with me next Thursday to remove the JJ stent Problems: ANTONINA PARK MD Jan 27, 2017 15:54
--- NOTE | 2017-01-27 15:54 | CONS ---
Date/Time of Note Date/Time of Note DATE: 01/27/17 TIME: 15:49 Consult Date/Type/Reason Admit Date/Time Jan 22, 2017 at 14:03 Initial Consult Date 01/22/2017 Type of Consultation: Urology Reason for Consultation Right upper urteral stone Ordering Provider: MANJU ZELAYA Subjective pain right flank,blood tinged urine Objective Vital Signs Date Time Temp Pulse Resp B/P Pulse Ox O2 Delivery O2 Flow Rate FiO2 01/27/17 13:36 97.9 64 16 126/66 100 01/27/17 08:00 Nasal Cannula 2.0 01/26/17 00:02 21 Intake and Output 01/26/17 01/26/17 01/27/17 15:00 23:00 07:00 Intake Total 660 ml 1360 ml Output Total 1400 ml 1000 ml Balance -740 ml 360 ml Results/Medications Result Diagram: 01/27/17 0523 01/27/17 0523 Results 24 hrs Laboratory Tests Test 01/27/17 05:23 White Blood Count 6.1 Red Blood Count 3.80 L Hemoglobin 11.3 L Hematocrit 35.1 L Mean Corpuscular Volume 92.4 Mean Corpuscular Hemoglobin 29.7 Mean Corpuscular Hemoglobin Concent 32.2 Red Cell Distribution Width 12.7 Platelet Count 135 L Mean Platelet Volume 12.0 H Neutrophils % 72.2 Lymphocytes % 15.8 Monocytes % 9.9 Eosinophils % 1.6 Basophils % 0.2 Nucleated Red Blood Cells % 0.0 Neutrophils # 4.4 Lymphocytes # 1.0 Monocytes # 0.6 Eosinophils # 0.1 Basophils # 0.0 Nucleated Red Blood Cells # 0.0 Sodium Level 142 Potassium Level 4.4 Chloride Level 109 Carbon Dioxide Level 29 Anion Gap 8 Blood Urea Nitrogen 11 Creatinine 0.83 Glucose Level 107 Calcium Level 8.8 Magnesium Level 1.9 Medications Current Medications Tamsulosin HCl 0.4 mg 0.4 mg DAILY PO Last administered on 01/27/17 09:31; Admin Dose 0.4 MG; Start 01/23/17 at 09:00 Sodium Chloride (NS) 1,000 ml @ 100 mls/hr Q10H IV Last administered on 06:10; Admin Dose 100 MLS/HR; Start 01/22/17 at 14:38 Ondansetron HCl (Zofran Inj) 4 mg Q6H PRN IV NAUSEA AND/OR VOMITING; Start 01/22/17 at 15:00 Acetaminophen (Tylenol Tab) 650 mg Q6H PRN PO PAIN LEVEL 1-3 OR FEVER Last administered on 01/27/17 13:54; Admin Dose 650 MG; Start 01/22/17 at 15:00 Acetaminophen/ Hydrocodone Bitart ([place] (5/325)) 1 tab Q6H PRN PO MODERATE PAIN LEVEL 4-6; Start 01/22/17 at 15:00 Acetaminophen/ Hydrocodone Bitart ([place] (5/325)) 2 tab Q6H PRN PO SEVERE PAIN LEVEL 7-10; Start 01/22/17 at 15:00 Morphine Sulfate (morphine) 2 mg Q4H PRN IV SEVERE PAIN LEVEL 7-10 Last administered on 01/23/17 08:04; Admin Dose 2 MG; Start 01/22/17 at 15:00 Docusate Sodium (Colace) 100 mg Q12H PRN PO CONSTIPATION; Start 01/22/17 at 15: 00 Magnesium Hydroxide (Milk Of Mag) 30 ml DAILY PRN PO CONSTIPATION Last administered on 01/25/17 09:38; Admin Dose 30 ML; Start 01/22/17 at 15:00 Bisacodyl (Dulcolax Supp) 10 mg DAILY PRN DC CONSTIPATION; Start 01/22/17 at 15 :00 Albuterol (Ventolin Hfa) 2 puff Q4H PRN INH WHEEZING AND SOB; Start 01/22/17 at 15:00 Famotidine (Pepcid) 20 mg DAILY PO Last administered on 01/27/17 09:31; Admin Dose 20 MG; Start 01/24/17 at 09:00 Polyethylene Glycol (Miralax) 17 gm DAILY PO Last administered on 01/27/17 09: 31; Admin Dose 17 GM; Start 01/25/17 at 13:00 Ciprofloxacin (Cipro) 250 mg BID@ PO Last administered on 01/27/17 06:10 ; Admin Dose 250 MG; Start 01/26/17 at 18:00 Assessment/Plan Chief Complaint/Hosp Course Status post right uretero-pyeloscopy,laser lithotripsy and insertion of a JJ stent Patient is doing well,pain is managed with oral pain meds He may be discharged today on pain meds,antibiotic and should follow up with me next Thursday to remove the JJ stent Problems: ANTONINA PAKR MD Jan 27, 2017 15:54
== END 2017-01-27 16:40 | disposition home or self-care (01) | DRG 660 ==
LOC: E/R 08:45 → MS2 14:03
PROVIDERS: ADMIT Internal Medicine; ATTEND Internal Medicine
PROC: 0TC68ZZ Extirpation of Matter from Right Ureter, Via Natural or Artificial Opening Endoscopic (ICD-10-PCS; 2017-01-26)
PROC: 0T768DZ Dilation of Right Ureter with Intraluminal Device, Via Natural or Artificial Opening Endoscopic (ICD-10-PCS; 2017-01-26)
PROC: 0TC08ZZ Extirpation of Matter from Right Kidney, Via Natural or Artificial Opening Endoscopic (ICD-10-PCS; principal; 2017-01-26 17:30)
DX: N13.2 Hydronephrosis with renal and ureteral calculous obstruction (principal); J44.9 Chronic obstructive pulmonary disease, unspecified; F17.210 Nicotine dependence, cigarettes, uncomplicated; K59.00 Constipation, unspecified
CPT/HCPCS: 71010; 74000; 74176; 74430; 76775; 80048; 80053; 81001; 83735; 84100; 84484; 85025; 85610; 85730; 87086; 88300; 93005; 94640; 94664; 96374; 96375; C2617; J0690; J0744; J1885; J2270; J2405; J2710; J3010; J7030

== ENCOUNTER 2017-03-17 16:37 | Emergency (ER) | payer OTHER ==
[~2017-03-17] VITALS: Ht 154.9 cm; Wt 56.0 kg
[~2017-03-17 16:37] MED LIST: ACET325T40 PO; ALBU8.5H3 INH; CIPR-193 PO
[2017-03-17 16:41] VITALS: Ht 154.9 cm; Wt 56.0 kg
[2017-03-17] MEDS ORDERED: ALBUTEROL 0.5% (NEB) 2.5 MG/0.5 ML AMP INH STA ×2 (19:06→21:07)
[2017-03-17] MEDS ORDERED: METHYLPREDNISOLONE 125 MG INJ IV STA (19:06)
--- NOTE | 2017-03-17 19:56 | RADRPT ---
PROCEDURE: XR Chest. CLINICAL INDICATION: Chest pain, asthma TECHNIQUE: Single frontal view of the chest was obtained. COMPARISON: CHEST 01/23/2017 FINDINGS: The heart is within normal limits. The thoracic aorta is calcified. The lungs are clear. There is no pleural effusion or pneumothorax. There are focal lucencies underneath the left diaphragm, likely representing bowel loops. RPTAT: AA IMPRESSION: No acute disease. Calcified aorta consistent with atherosclerotic disease. .Jurgen Hernández MD, MD Date Time Electronically viewed and signed by .Jurgen Hernández MD, MD on 03/17/2017 19:56 .S/
[2017-03-17] MEDS ORDERED: ALBU2.5V3 NEB (20:57)
--- NOTE | 2017-03-17 21:10 | ERD ---
ER Documentation Chief Complaint Chief Complaint SOB X 2 WEEKS HPI This is 76-year-old male with a history of asthma is complaining of 2 weeks of off-and-on asthma exacerbations. The patient has an inhaler that tends to help most of the time but he says the past 2 days he has had more wheezing than usual he does not have a cough or fever. No chest pain no vomiting diarrhea shortness of breath dyspnea on exertion no leg edema. The patient had an extensive smoking history ROS All systems reviewed and are negative except as per history of present illness. Medications Home Meds Reported Medications Albuterol Sulfate* (Albuterol Sulfate* Neb) 0.083%-3 Ml Neb, 2.5 MG NEB Q4H Y for WHEEZING AND SOB, #30 VIAL 03/17/17 Albuterol Sulfate* (Proair HFA*) 8.5 Gm Hfa.aer.ad, 2 PUFF INH Q4H Y for WHEEZING AND SOB, #1 INHALER 01/22/17 Discontinued Scripts Acetaminophen (MAPAP) 325 Mg Tablet, 650 MG PO Q6H Y for PAIN LEVEL 1-3 OR FEVER , #30 TAB OTC Prov:MANJU EZLAYA F 01/27/17 Ciprofloxacin Hcl* (Ciprofloxacin Hcl*) 250 Mg Tablet, 250 MG PO BID for 7 Days , TAB Prov:MANJU ZELAYA 01/27/17 Allergies Allergies: Coded Allergies: No Known Allergy (Unverified , 03/17/17) PMhx/Soc History of Surgery: No Anesthesia Reaction: No Hx 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 Disorder: No Hx Respiratory Disorders: Yes (asthma) Hx Cardiac Disorders: No Hx Psychiatric Problems: No Hx Miscellaneous Medical Probl: No Hx Alcohol Use: Yes (occasional, 2 weeks ago, 1 bottle beer) Hx Substance Use: No Hx Tobacco Use: No FmHx Family History: No coronary disease Physical Exam Vitals Vital Signs Date Time Temp Pulse Resp B/P Pulse Ox O2 Delivery O2 Flow Rate FiO2 03/17/17 21:28 97.8 90 22 128/71 100 Room Air 03/17/17 20:00 98.1 83 18 126/75 99 Room Air 03/17/17 19:15 57 18 99 21 03/17/17 16:41 98.1 72 18 132/68 99 Physical Exam Const: Well-developed, well-nourished Head: Atraumatic, normocephalic Eyes: Normal Conjunctiva, PERRLA, EOMI, normal sclera, no nystagmus ENT: Normal External Ears, Nose and Mouth, moist mucus membranes. Neck: Full range of motion. No meningismus, no lymphadenopathy. Resp: [Distant breath sounds bilaterally no increased work of breathing , breath sounds similar to his COPD patient Cardio: Regular rate and rhythm, no murmurs, S1 S2 present Abd: Soft, non tender x 4, non distended. Normal bowel sounds, no guarding or rebound, no pulsitile abdominal masses or bruits Skin: No petechiae or rashes, no ecchymosis , no maculopapular rash Back: No midline or flank tenderness Ext: No cyanosis, or edema, FROM x 4, normal inspection, neurovascularly intact x 4 Neur: Awake and alert, STR 5/5 x 4, sensation intact x 4, no focal findings, cerebellum intact Psych: Normal Mood and Affect Results 24 hrs Current Medications Medications (Trade) Dose Ordered Sig/Royal Route PRN Reason Start Time Stop Time Status Last Admin Dose Admin Albuterol (Proventil 0.5% (Neb)) 10 mg ONCE STAT INH 03/17/17 19:06 03/17/17 19:07 DC 03/17/17 19:13 Methylprednisolone Sodium Succinate (Solu-Medrol) 125 mg ONCE STAT IV 03/17/17 19:06 03/17/17 19:07 DC 03/17/17 19:30 Albuterol (Proventil 0.5% (Neb)) 10 mg ONCE STAT INH 03/17/17 21:07 03/17/17 21:10 DC Procedures/MDM PROCEDURE: XR Chest. CLINICAL INDICATION: Chest pain, asthma TECHNIQUE: Single frontal view of the chest was obtained. COMPARISON: DR CONRAD 01/23/2017 FINDINGS: The heart is within normal limits. The thoracic aorta is calcified. The lungs are clear. There is no pleural effusion or pneumothorax. There are focal lucencies underneath the left diaphragm, likely representing bowel loops. RPTAT: AA IMPRESSION: No acute disease. Calcified aorta consistent with atherosclerotic disease. .Jurgen Hernández MD, MD Date Time Electronically viewed and signed by .Jurgen Hernández MD, on 03/17/2017 19: 56 .S/ CC: LINA ROSADO DO Patient received nebulizer treatments and is feeling better. Discharge with COPD/asthma exacerbation on. Prednisone and albuterol inhaler. On exam his lung sounds are much better with good air movement room air oxygenation is 97% Departure Diagnosis: Primary Impression: Asthma exacerbation Asthma severity: moderate Asthma persistence: unspecified Qualified Code: J45.901 - Moderate asthma with exacerbation, unspecified whether persistent Condition: Stable LINA ROSADO DO Mar 17, 2017 21:10
[2017-03-17] MEDS ORDERED: PRED20TA PO (22:25)
[2017-03-17] MEDS ORDERED: ALBU8.5H3 INH (22:25)
[2017-03-17 23:00] VITALS: PULSE 94; TEMP 97.8
[2017-03-17 23:43] VITALS: BP 122/69; RESP 18
== END 2017-03-18 00:30 | disposition home or self-care (01) ==
LOC: E/R 16:37
DX: J45.901 Unspecified asthma with (acute) exacerbation (principal)
CPT/HCPCS: 71010; 94644; 94645; 96374; 99284; J2930

== ENCOUNTER 2017-03-25 22:41 | Inpatient (IN) | END 2017-04-02 13:25 | DRG 871 ==

== ENCOUNTER 2017-06-24 23:45 | Inpatient (IN) | END 2017-06-28 14:20 | disposition home health service (06) | DRG 871 ==

== ENCOUNTER 2018-01-10 21:00 | Emergency (ER) | END 2018-01-11 01:15 | disposition home or self-care (01) ==